=== PATIENT | female | born 1940 | race African-American/Black ===

== ENCOUNTER 2019-05-01 15:38 | Observation (INO) ==
[2019-05-01] MEDS ORDERED: ALUMINUM/MAGNES/SIMETH MAX STR 30 ML UDCUP PO STA (18:25)
[2019-05-01] MEDS ORDERED: RANITIDINE 150 MG TABLET PO STA (18:25)
[2019-05-01 19:08] LABS: Basophils % 0.5 % (0.0-0.8); Eosinophils % 0.3 % (0.00-10.9); Hematocrit 37.3 VOL% (35.7-47.0); Hemoglobin 11.9 GM/DL (12.0-16.0); Immature Granulocytes % 0.7 %; Immature Granulocytes Absolute 0.04 #; Lymphocytes # 1.4 10*3/uL (1.4-4.0); Lymphocytes % 24.3 % (21.3-54.2); Mean Corpuscular HGB Conc 31.9 GM/DL (32-36); Mean Corpuscular Volume 93.7 FL (87-102); Mean Platelet Volume 11.8 FL (9.6-12.0); Monocytes % 19.1 % (1.7-12.7); Neutrophils % 55.1 % (38.7-73.9); Platelet Count 124 T/CUMM (130-400); Red Blood Count 3.98 MC/CUMM (3.8-5.5); White Blood Count 5.7 T/CUMM (4-12)
[2019-05-01 19:30] LABS: Eosinophils 1 % (0-10); Lymphocytes 24 % (20-55); Segmented Neutrophils 62 % (50-85); Total Cells Counted 100
[2019-05-01 19:31] LABS: Anisocytosis 1+; Hypochromasia Slight; Platelet Estimate Adequate; Schistocytes Few
[2019-05-01 19:32] LABS: Bilirubin,Direct 0.33 MG/DL (0.0-0.20); Bilirubin,Indirect 0.7 MG/DL (0.0-1.0); Calcium 8.9 MG/DL (8.5-10.1); Osmolality,Calculated 278.7 MOS/KG (273-304); Total Protein 8.3 G/DL (6.4-8.3)
[2019-05-01 19:42] LABS: Apearance,Urine Slightly Hazy (Clear); Bacteria,Urine Occasional /HPF (Few); Bilirubin,Urine Negative (Negative); Blood, Urine Negative (Negative); Glucose,Urine (UA) Negative (Negative); Ketones,Urine Negative (Negative); Nitrite,Urine Negative (Negative); Protein,Urine >=500 MG/DL; RBC,Urine 3 /HPF (0-4); Squamous Epithelial Cell,Urine Few /HPF (0-10); Urine Color Yellow (Yellow); Urine Specific Gravity 1.025 (1.001-1.035); Urine Urobilinogen < 2.0 EU/DL (0.2-1.0); WBC,Urine 1 /HPF (0-6)
[2019-05-01] MEDS ORDERED: SODIUM CHLORIDE 0.9% 500 ML IV STA (19:43)
[2019-05-01] MEDS ORDERED: FUROSEMIDE 100 MG/10 ML VIAL IV STA (22:02)
[2019-05-01] MEDS ORDERED: ASPIRIN CHEW 81 MG TABLET PO STA (22:02)
[2019-05-01] MEDS ORDERED: ENOXAPARIN 30 MG/0.3 ML SYRINGE SUBCUT STA (22:02)
[2019-05-01] MEDS ORDERED: ENOXAPARIN 80 MG/0.8 ML SYRINGE SUBCUT ONE (22:05)
[2019-05-02] MEDS ORDERED: DICYCLOMINE 20 MG TABLET PO PRN (01:09)
[2019-05-02] MEDS ORDERED: MORPHINE 4 MG/1 ML VIAL IV PRN (01:09)
[2019-05-02] MEDS ORDERED: ONDANSETRON 4 MG/2 ML VIAL IV PRN (01:09)
[2019-05-02] MEDS ORDERED: diphenhydrAMINE CAP 25 MG CAPSULE PO PRN (01:09)
[2019-05-02] MEDS ORDERED: ACETAMINOPHEN 325 MG TABLET PO PRN (01:09)
[2019-05-02] MEDS ORDERED: NITROGLYCERIN SL 0.4 MG TABLET SL PRN (01:10)
[2019-05-02 04:59] LABS: Basophils % 0.3 % (0.0-0.8); Eosinophils # 0.1 10*3/uL (0.0-0.87); Eosinophils % 1.2 % (0.00-10.9); Hematocrit 34.9 VOL% (35.7-47.0); Hemoglobin 11.5 GM/DL (12.0-16.0); Immature Granulocytes % 0.9 %; Immature Granulocytes Absolute 0.05 #; Lymphocytes # 1.7 10*3/uL (1.4-4.0); Lymphocytes % 28.6 % (21.3-54.2); Mean Corpuscular Volume 90.2 FL (87-102); Monocytes % 20.4 % (1.7-12.7); Neutrophils % 48.6 % (38.7-73.9); Platelet Count 130 T/CUMM (130-400); Red Blood Count 3.87 MC/CUMM (3.8-5.5); Red Cell Distribution Width 14.1 % (9.3-17.3); White Blood Count 5.8 T/CUMM (4-12)
[2019-05-02 05:35] LABS: Eosinophils 5 % (0-10); Lymphocytes 31 % (20-55); Metamyelocytes 2 %; Myelocytes 1 %; Platelet Estimate Decreased; Segmented Neutrophils 56 % (50-85); Total Cells Counted 100
[2019-05-02 05:36] LABS: Polychromasia Few
[2019-05-02 05:39] LABS: Calcium 8.7 MG/DL (8.5-10.1); Osmolality,Calculated 280.5 MOS/KG (273-304); Risk Ratio 2.73; Thyroid Stimulating Hormone 2.07 uIU/ml (0.358-3.74)
[2019-05-02] MEDS: FERROUS SULFATE 325 MG TABLET PO SCH (09:48)
[2019-05-02] MEDS: LOSARTAN 50 MG TABLET PO SCH (09:48)
[2019-05-02] MEDS: PANTOPRAZOLE 40 MG TABLET PO SCH (09:48)
[2019-05-02] MEDS: ASPIRIN EC 81 MG TABLET PO SCH (09:48)
[2019-05-02] MEDS ORDERED: ENOXAPARIN 80 MG/0.8 ML SYRINGE SUBCUT SCH (10:00)
[2019-05-02] MEDS ORDERED: ENOXAPARIN 30 MG/0.3 ML SYRINGE SUBCUT SCH (21:00)
[2019-05-02] MEDS: traZODone 50 MG TABLET PO PRN (21:45)
[2019-05-03 06:27] LABS: Basophils % 0.5 % (0.0-0.8); Eosinophils # 0.2 10*3/uL (0.0-0.87); Eosinophils % 3.1 % (0.00-10.9); Hematocrit 30.6 VOL% (35.7-47.0); Hemoglobin 10.2 GM/DL (12.0-16.0); Immature Granulocytes % 0.5 %; Immature Granulocytes Absolute 0.03 #; Lymphocytes # 1.8 10*3/uL (1.4-4.0); Lymphocytes % 32.5 % (21.3-54.2); Mean Corpuscular HGB Conc 33.3 GM/DL (32-36); Monocytes % 24.8 % (1.7-12.7); Neutrophils % 38.6 % (38.7-73.9); Platelet Count 117 T/CUMM (130-400); White Blood Count 5.5 T/CUMM (4-12)
[2019-05-03 06:44] LABS: Osmolality,Calculated 271.2 MOS/KG (273-304)
[2019-05-03 06:50] LABS: Eosinophils 1 % (0-10); Hypochromasia 1+; Lymphocytes 42 % (20-55); Ovalocytes Slight; Platelet Estimate Decreased; Segmented Neutrophils 36 % (50-85); Total Cells Counted 100
[2019-05-03] MEDS: ASPIRIN EC 81 MG TABLET PO SCH (09:18)
[2019-05-03] MEDS: LOSARTAN 50 MG TABLET PO SCH (09:19)
[2019-05-03] MEDS: FERROUS SULFATE 325 MG TABLET PO SCH (09:19)
[2019-05-03] MEDS: PANTOPRAZOLE 40 MG TABLET PO SCH ×2 (09:19→17:29)
[2019-05-03] MEDS ORDERED: propofoL 200 MG/20 ML VIAL IV ONE (09:30)
[2019-05-03] MEDS ORDERED: LIDOCAINE 2% 5 ML VIAL ONE (09:30)
[2019-05-03] MEDS: cefTRIAXone 1,000 MG in SYRINGE 1 EACH IV SCH (11:17)
[2019-05-03] MEDS ORDERED: SODIUM CHLORIDE 0.9% 1,000 ML IV SCH (11:30)
[2019-05-03] MEDS ORDERED: PANTOPRAZOLE 40 MG TABLET PO ONE (17:12)
[2019-05-03] MEDS: traZODone 50 MG TABLET PO PRN (22:01)
[2019-05-04 05:19] LABS: Basophils % 0.7 % (0.0-0.8); Eosinophils # 0.2 10*3/uL (0.0-0.87); Eosinophils % 2.7 % (0.00-10.9); Hematocrit 31.8 VOL% (35.7-47.0); Hemoglobin 10.7 GM/DL (12.0-16.0); Immature Granulocytes % 0.7 %; Immature Granulocytes Absolute 0.04 #; Lymphocytes # 1.6 10*3/uL (1.4-4.0); Mean Corpuscular HGB Conc 33.6 GM/DL (32-36); Mean Corpuscular Volume 89.1 FL (87-102); Mean Platelet Volume 12.8 FL (9.6-12.0); Monocytes % 25.9 % (1.7-12.7); Platelet Count 116 T/CUMM (130-400); Red Blood Count 3.57 MC/CUMM (3.8-5.5); White Blood Count 5.5 T/CUMM (4-12)
[2019-05-04 05:49] LABS: Calcium 7.9 MG/DL (8.5-10.1); Osmolality,Calculated 276.8 MOS/KG (273-304)
[2019-05-04 05:56] LABS: Band Neutrophils 3 % (0-10); Eosinophils 2 % (0-10); Lymphocytes 29 % (20-55); Segmented Neutrophils 47 % (50-85); Total Cells Counted 100
[2019-05-04 05:57] LABS: Anisocytosis 1+; Burr Cells Few; Platelet Estimate Adequate; Poikilocytosis 1+
[2019-05-04 05:58] LABS: Macrocytosis Slight
[2019-05-04] MEDS: PANTOPRAZOLE 40 MG TABLET PO SCH (06:25)
[2019-05-04] MEDS: ASPIRIN EC 81 MG TABLET PO SCH (09:19)
[2019-05-04] MEDS: LOSARTAN 50 MG TABLET PO SCH (09:19)
[2019-05-04] MEDS: FERROUS SULFATE 325 MG TABLET PO SCH (09:19)
[2019-05-04] MEDS: cefTRIAXone 1,000 MG in SYRINGE 1 EACH IV SCH (11:37)
[2019-05-04 13:04] VITALS: BP 144/76
== END 2019-05-04 12:23 | disposition home or self-care (01) ==
LOC: N.EDINP 15:38 → N.ED 15:38 → N.TELEN 05-02 00:39
PROVIDERS: ADMIT Internal Medicine; ATTEND Internal Medicine

== ENCOUNTER 2020-07-09 17:34 | Inpatient (IN) ==
[2020-07-09 18:32] LABS: Basophils # 0.1 10*3/uL (0.0-0.2); Basophils % 1.5 % (0.0-0.8); Eosinophils # 0.1 10*3/uL (0.0-0.87); Eosinophils % 3.3 % (0.00-10.9); Hematocrit 33.7 VOL% (35.7-47.0); Hemoglobin 10.5 GM/DL (12.0-16.0); Immature Granulocytes % 0.5 %; Immature Granulocytes Absolute 0.02 #; Lymphocytes % 26.2 % (21.3-54.2); Mean Corpuscular HGB Conc 31.2 GM/DL (32-36); Mean Corpuscular Volume 94.7 FL (87-102); Monocytes % 30.3 % (1.7-12.7); Neutrophils % 38.2 % (38.7-73.9); Platelet Count 113 T/CUMM (130-400); Red Blood Count 3.56 MC/CUMM (3.8-5.5); Red Cell Distribution Width 17.2 % (9.3-17.3); White Blood Count 3.9 T/CUMM (4-12)
[2020-07-09 18:49] LABS: Albumin 3.4 G/DL (3.4-5.0); Bilirubin,Total 1.3 MG/DL (0.2-1.0); Calcium 8.9 MG/DL (8.5-10.1); Osmolality,Calculated 293.8 MOS/KG (273-304); Potassium 4.9 MMOL/L (3.5-5.1); Total Protein 8.7 G/DL (5.0-7.5)
[2020-07-09 18:53] LABS: Troponin I 0.148 NG/ML (0.00-0.045)
[2020-07-09 18:59] LABS: Anisocytosis Slight; Lymphocytes 24 % (20-55); Nucleated Red Blood Cells 1 (0-5); Platelet Estimate Adequate; Segmented Neutrophils 49 % (50-85); Total Cells Counted 100
[2020-07-09 19:00] LABS: Poikilocytosis Slight; Schistocytes Few
[2020-07-09] MEDS ORDERED: FUROSEMIDE 40 MG/4 ML VIAL IV STA (19:48)
[2020-07-09] MEDS ORDERED: DEXTROSE 50% 25 GM/50 ML VIAL IV PRN (21:03)
[2020-07-09] MEDS ORDERED: ONDANSETRON 4 MG/2 ML VIAL IV PRN (21:03)
[2020-07-09] MEDS ORDERED: GLUCAGON 1 MG VIAL IM PRN (21:03)
[2020-07-09] MEDS ORDERED: hydrALAZINE 20 MG/1 ML VIAL IV PRN (21:03)
[2020-07-10 05:39] LABS: Basophils % 0.9 % (0.0-0.8); Eosinophils # 0.1 10*3/uL (0.0-0.87); Eosinophils % 3.1 % (0.00-10.9); Hemoglobin 9.6 GM/DL (12.0-16.0); Immature Granulocytes % 0.2 %; Immature Granulocytes Absolute 0.01 #; Lymphocytes # 1.1 10*3/uL (1.4-4.0); Lymphocytes % 23.9 % (21.3-54.2); Mean Corpuscular Volume 95.7 FL (87-102); Monocytes % 39.2 % (1.7-12.7); Neutrophils % 32.7 % (38.7-73.9); Platelet Count 57 T/CUMM (130-400); Red Blood Count 3.24 MC/CUMM (3.8-5.5); Red Cell Distribution Width 17.3 % (9.3-17.3); White Blood Count 4.5 T/CUMM (4-12)
[2020-07-10 06:11] LABS: Eosinophils 1 % (0-10); Hypochromasia 1+; Lymphocytes 36 % (20-55); Microcytosis 1+; Platelet Estimate Decreased; Segmented Neutrophils 33 % (50-85); Total Cells Counted 100
[2020-07-10 06:12] LABS: Burr Cells Slight; Ovalocytes Slight
[2020-07-10 06:17] LABS: Albumin 3.2 G/DL (3.4-5.0); Bilirubin,Total 2.2 MG/DL (0.2-1.0); Calcium 9.2 MG/DL (8.5-10.1); Osmolality,Calculated 290.8 MOS/KG (273-304); Thyroid Stimulating Hormone 8.33 uIU/ml (0.358-3.74)
[2020-07-10] MEDS: FUROSEMIDE 40 MG/4 ML VIAL IV SCH ×2 (09:45→15:27)
[2020-07-10] MEDS: ASPIRIN EC 81 MG TABLET PO SCH (09:45)
[2020-07-10 12:29] LABS: Basophils # 0.1 10*3/uL (0.0-0.2); Basophils % 1.2 % (0.0-0.8); Eosinophils # 0.1 10*3/uL (0.0-0.87); Eosinophils % 3.4 % (0.00-10.9); Hemoglobin 9.8 GM/DL (12.0-16.0); Immature Granulocytes % 0.7 %; Immature Granulocytes Absolute 0.03 #; Lymphocytes # 1.1 10*3/uL (1.4-4.0); Lymphocytes % 26.9 % (21.3-54.2); Mean Corpuscular HGB Conc 30.6 GM/DL (32-36); Mean Corpuscular Volume 96.7 FL (87-102); Monocytes % 31.5 % (1.7-12.7); Neutrophils % 36.3 % (38.7-73.9); Platelet Count 96 T/CUMM (130-400); Red Blood Count 3.31 MC/CUMM (3.8-5.5); Red Cell Distribution Width 17.5 % (9.3-17.3); White Blood Count 4.1 T/CUMM (4-12)
[2020-07-10 12:51] LABS: Albumin 3.4 G/DL (3.4-5.0); Bilirubin,Direct 0.7 MG/DL (0.0-0.20); Bilirubin,Indirect 0.6 MG/DL (0.0-1.0); Bilirubin,Total 1.3 MG/DL (0.2-1.0); Total Protein 8.5 G/DL (5.0-7.5)
[2020-07-10 12:58] LABS: Eosinophils 1 % (0-10)
[2020-07-10 12:59] LABS: Anisocytosis 2+; Lymphocytes 25 % (20-55); Segmented Neutrophils 45 % (50-85); Total Cells Counted 100
[2020-07-10 13:00] LABS: Acanthocytes 1+; Immunoglobulin A 309 MG/DL (70-400); Immunoglobulin G 2790 MG/DL (700-1600); Immunoglobulin M 107 MG/DL (40-230); Toxic Granulation 1+
[2020-07-10 13:04] LABS: Burr Cells 1+
[2020-07-10 13:05] LABS: Macrocytosis 1+; Poikilocytosis 1+
[2020-07-10 13:06] LABS: Platelet Estimate Decreased
[2020-07-10] MEDS: ACETAMINOPHEN 325 MG TABLET PO PRN (19:28)
[2020-07-10] MEDS: ENOXAPARIN 30 MG/0.3 ML SYRINGE SUBCUT SCH (20:39)
[2020-07-11] MEDS: PANTOPRAZOLE 40 MG TABLET PO SCH (06:06)
[2020-07-11] MEDS: LEVOTHYROXINE 50 MCG TABLET PO SCH (06:06)
[2020-07-11 06:16] LABS: Eosinophils # 0.1 10*3/uL (0.0-0.87); Eosinophils % 3.2 % (0.00-10.9); Hemoglobin 9.5 GM/DL (12.0-16.0); Immature Granulocytes % 0.5 %; Immature Granulocytes Absolute 0.02 #; Lymphocytes # 1.1 10*3/uL (1.4-4.0); Lymphocytes % 27.4 % (21.3-54.2); Mean Corpuscular HGB Conc 31.7 GM/DL (32-36); Mean Corpuscular Volume 94.3 FL (87-102); Monocytes % 35.6 % (1.7-12.7); Neutrophils % 32.3 % (38.7-73.9); Red Blood Count 3.18 MC/CUMM (3.8-5.5); Red Cell Distribution Width 17.4 % (9.3-17.3); White Blood Count 4.1 T/CUMM (4-12)
[2020-07-11 06:35] LABS: Albumin 3.2 G/DL (3.4-5.0); Bilirubin,Total 1.2 MG/DL (0.2-1.0); Calcium 8.5 MG/DL (8.5-10.1); Osmolality,Calculated 291.5 MOS/KG (273-304); Potassium 4.9 MMOL/L (3.5-5.1); Total Protein 7.9 G/DL (5.0-7.5)
[2020-07-11 06:38] LABS: Platelet Count 55 T/CUMM (130-400)
[2020-07-11 06:46] LABS: Eosinophils 10 % (0-10); Lymphocytes 22 % (20-55); Platelet Estimate Decreased; Segmented Neutrophils 39 % (50-85); Total Cells Counted 100
[2020-07-11 06:47] LABS: Hypochromasia 1+; Macrocytosis Slight; Ovalocytes Slight
[2020-07-11 08:32] LABS: Immunoglobulin A (Chem) 309 MG/DL (70-400); Immunoglobulin G (Chem) 2790 MG/DL (700-1600); Immunoglobulin M (Chem) 107 MG/DL (40-230)
[2020-07-11] MEDS: ASPIRIN EC 81 MG TABLET PO SCH (08:51)
[2020-07-11] MEDS: FUROSEMIDE 40 MG/4 ML VIAL IV SCH ×2 (08:51→16:40)
[2020-07-11] MEDS: DOCUSATE SODIUM 100 MG CAPSULE PO PRN ×2 (16:40→20:32)
[2020-07-11] MEDS: ENOXAPARIN 30 MG/0.3 ML SYRINGE SUBCUT SCH (20:29)
[2020-07-12 05:23] LABS: Basophils % 1.1 % (0.0-0.8); Eosinophils # 0.1 10*3/uL (0.0-0.87); Eosinophils % 2.5 % (0.00-10.9); Hemoglobin 9.1 GM/DL (12.0-16.0); Immature Granulocytes % 0.3 %; Immature Granulocytes Absolute 0.01 #; Lymphocytes # 0.9 10*3/uL (1.4-4.0); Lymphocytes % 26.2 % (21.3-54.2); Mean Corpuscular HGB Conc 32.5 GM/DL (32-36); Mean Corpuscular Volume 91.5 FL (87-102); Monocytes % 30.6 % (1.7-12.7); Neutrophils % 39.3 % (38.7-73.9); Platelet Count 65 T/CUMM (130-400); Red Blood Count 3.06 MC/CUMM (3.8-5.5); Red Cell Distribution Width 17.3 % (9.3-17.3); White Blood Count 3.6 T/CUMM (4-12)
[2020-07-12] MEDS: PANTOPRAZOLE 40 MG TABLET PO SCH (05:45)
[2020-07-12] MEDS: LEVOTHYROXINE 50 MCG TABLET PO SCH (05:45)
[2020-07-12 05:47] LABS: Eosinophils 2 % (0-10); Hypochromasia 1+; Lymphocytes 27 % (20-55); Microcytosis 1+; Platelet Estimate Decreased; Segmented Neutrophils 44 % (50-85); Total Cells Counted 100
[2020-07-12 05:54] LABS: Calcium 8.8 MG/DL (8.5-10.1); Potassium 4.8 MMOL/L (3.5-5.1)
[2020-07-12] MEDS: FERROUS SULFATE 325 MG TABLET PO SCH (09:04)
[2020-07-12] MEDS: FUROSEMIDE 40 MG/4 ML VIAL IV SCH ×2 (09:04→16:23)
[2020-07-12] MEDS: ASPIRIN EC 81 MG TABLET PO SCH (09:04)
[2020-07-12] MEDS: metOLazone 5 MG TABLET PO SCH (09:04)
[2020-07-12] MEDS ORDERED: LACTULOSE 20 GM/30 ML UDCUP PO PRN (13:21)
[2020-07-12 14:31] LABS: Hepatitis B Surface Ag Quant < 0.10 Index; Hepatitis B Surface Ag Result Non-Reactive (NonReactive)
[2020-07-12 14:32] LABS: Hepatitis B Core IgM Quant 0.26 Index; Hepatitis C Virus Ab Quant 0.23 Index; Hepatitis C Virus Ab Result Non-Reactive (NonReactive)
[2020-07-12] MEDS: ACETAMINOPHEN 325 MG TABLET PO PRN (18:30)
[2020-07-12 19:46] LABS: Folate 17.2 NG/ML (5.38-24.0)
[2020-07-12] MEDS ORDERED: ZALEPLON 5 MG CAPSULE PO PRN (21:31)
[2020-07-13] MEDS: LEVOTHYROXINE 50 MCG TABLET PO SCH (05:32)
[2020-07-13] MEDS: PANTOPRAZOLE 40 MG TABLET PO SCH (05:32)
[2020-07-13 06:18] LABS: INR 1.4; PT Patient Result 14.3 SECS (9.8-11.9)
[2020-07-13 06:30] LABS: Basophils % 0.8 % (0.0-0.8); Eosinophils # 0.1 10*3/uL (0.0-0.87); Eosinophils % 2.7 % (0.00-10.9); Hematocrit 28.4 VOL% (35.7-47.0); Hemoglobin 9.5 GM/DL (12.0-16.0); Immature Granulocytes % 0.5 %; Immature Granulocytes Absolute 0.02 #; Lymphocytes # 0.9 10*3/uL (1.4-4.0); Lymphocytes % 23.3 % (21.3-54.2); Mean Corpuscular HGB Conc 33.5 GM/DL (32-36); Mean Corpuscular Volume 90.2 FL (87-102); Monocytes % 34.8 % (1.7-12.7); Neutrophils % 37.9 % (38.7-73.9); Red Blood Count 3.15 MC/CUMM (3.8-5.5); Red Cell Distribution Width 17.2 % (9.3-17.3); White Blood Count 3.7 T/CUMM (4-12)
[2020-07-13] MEDS ORDERED: DIAZEPAM 5 MG TABLET PO ONE (06:30)
[2020-07-13 06:32] LABS: Platelet Count 83 T/CUMM (130-400)
[2020-07-13 06:39] LABS: Osmolality,Calculated 291.8 MOS/KG (273-304); Potassium 4.2 MMOL/L (3.5-5.1)
[2020-07-13 06:45] LABS: Immunoglobulin A 282 MG/DL (70-400); Immunoglobulin G 2440 MG/DL (700-1600); Immunoglobulin M 93 MG/DL (40-230)
[2020-07-13 08:03] LABS: Band Neutrophils 1 % (0-10); Eosinophils 4 % (0-10); Lymphocytes 27 % (20-55); Segmented Neutrophils 39 % (50-85); Total Cells Counted 100
[2020-07-13 08:04] LABS: Platelet Estimate Decreased
[2020-07-13 08:05] LABS: Acanthocytes 2+; Anisocytosis 1+; Atypical Lymphocytes Few; Macrocytosis 1+; Ovalocytes 1+
[2020-07-13] MEDS: metOLazone 5 MG TABLET PO SCH (09:18)
[2020-07-13] MEDS: FERROUS SULFATE 325 MG TABLET PO SCH (09:18)
[2020-07-13] MEDS: FUROSEMIDE 40 MG/4 ML VIAL IV SCH ×2 (09:18→15:52)
[2020-07-13 09:28] LABS: Immunoglobulin A (Chem) 282 MG/DL (70-400); Immunoglobulin G (Chem) 2440 MG/DL (700-1600); Immunoglobulin M (Chem) 93 MG/DL (40-230)
[2020-07-13] MEDS ORDERED: LIDOCAINE 1%/EPI INJ 20 ML VIAL ONE (10:14)
[2020-07-13 19:43] LABS: HIT Interpretation Negative (Negative)
[2020-07-13] MEDS ORDERED: NALOXONE 0.4 MG/ML VIAL ONE (22:12)
[2020-07-14] MEDS: ACETAMINOPHEN 325 MG TABLET PO PRN (03:27)
[2020-07-14] MEDS: PANTOPRAZOLE 40 MG TABLET PO SCH (05:49)
[2020-07-14] MEDS: LEVOTHYROXINE 50 MCG TABLET PO SCH (05:50)
[2020-07-14 06:04] LABS: Basophils % 0.8 % (0.0-0.8); Eosinophils # 0.1 10*3/uL (0.0-0.87); Eosinophils % 1.7 % (0.00-10.9); Hemoglobin 8.5 GM/DL (12.0-16.0); Immature Granulocytes % 0.6 %; Immature Granulocytes Absolute 0.03 #; Lymphocytes % 18.4 % (21.3-54.2); Mean Corpuscular HGB Conc 32.7 GM/DL (32-36); Mean Corpuscular Volume 90.3 FL (87-102); Monocytes % 33.5 % (1.7-12.7); Platelet Count 42 T/CUMM (130-400); Red Blood Count 2.88 MC/CUMM (3.8-5.5); Red Cell Distribution Width 17.1 % (9.3-17.3); White Blood Count 5.3 T/CUMM (4-12)
[2020-07-14 06:28] LABS: Calcium 8.7 MG/DL (8.5-10.1); Osmolality,Calculated 291.7 MOS/KG (273-304); Potassium 4.2 MMOL/L (3.5-5.1)
[2020-07-14 06:42] LABS: Band Neutrophils 2 % (0-10); Lymphocytes 26 % (20-55); Metamyelocytes 1 %; Platelet Estimate Decreased; Segmented Neutrophils 48 % (50-85); Total Cells Counted 100
[2020-07-14 06:43] LABS: Acanthocytes Few; Anisocytosis 3+; Atypical Lymphocytes Few; Burr Cells Few; Macrocytosis 1+; Poikilocytosis 1+; Schistocytes Few
[2020-07-14 06:44] LABS: Hypochromasia Slight
[2020-07-14] MEDS: metOLazone 5 MG TABLET PO SCH (09:13)
[2020-07-14] MEDS: FUROSEMIDE 40 MG/4 ML VIAL IV SCH (09:13)
[2020-07-14] MEDS: FERROUS SULFATE 325 MG TABLET PO SCH (09:13)
[2020-07-14 11:15] VITALS: BP 108/49
[2020-07-14 12:04] LABS: Basophils % 0.6 % (0.0-0.8); Eosinophils # 0.1 10*3/uL (0.0-0.87); Eosinophils % 1.7 % (0.00-10.9); Hematocrit 28.5 VOL% (35.7-47.0); Immature Granulocytes % 0.8 %; Immature Granulocytes Absolute 0.05 #; Lymphocytes # 1.4 10*3/uL (1.4-4.0); Mean Corpuscular HGB Conc 31.6 GM/DL (32-36); Mean Corpuscular Volume 93.1 FL (87-102); Monocytes % 35.3 % (1.7-12.7); Neutrophils % 40.6 % (38.7-73.9); Platelet Count 53 T/CUMM (130-400); Red Blood Count 3.06 MC/CUMM (3.8-5.5); Red Cell Distribution Width 17.2 % (9.3-17.3); White Blood Count 6.6 T/CUMM (4-12)
[2020-07-14 12:59] LABS: Eosinophils 3 % (0-10); Lymphocytes 25 % (20-55); Macrocytosis 1+; Platelet Estimate Decreased; Segmented Neutrophils 43 % (50-85); Total Cells Counted 100
[2020-07-14 13:00] LABS: Anisocytosis 2+; Hypochromasia 1+; Ovalocytes Few; Poikilocytosis Slight; Tear Drop Cells Few
== END 2020-07-14 13:44 | disposition home or self-care (01) | DRG 291 ==
LOC: N.ED 17:34 → N.EDINP 19:49 → N.5E 21:16
PROVIDERS: ADMIT Internal Medicine; ATTEND Internal Medicine

== ENCOUNTER 2022-04-24 09:03 | Inpatient (IN) ==
[2022-04-24 10:35] LABS: Basophils % 0.2 % (0.0-0.8); Eosinophils % 0.1 % (0.00-10.9); Hematocrit 30.4 VOL% (35.7-47.0); Hemoglobin 9.5 GM/DL (12.0-16.0); Immature Granulocytes % 2.1 %; Immature Granulocytes Absolute 0.35 #; Lymphocytes % 5.7 % (21.3-54.2); Mean Corpuscular HGB Conc 31.3 GM/DL (32-36); Mean Corpuscular Volume 95.6 FL (87-102); Monocytes # 2.9 10*3/uL (0.11-0.8); Monocytes % 17.3 % (1.7-12.7); Neutrophils % 74.6 % (38.7-73.9); Red Blood Count 3.18 MC/CUMM (3.8-5.5); White Blood Count 16.9 T/CUMM (4-12)
[2022-04-24 10:36] LABS: Platelet Count 97 T/CUMM (130-400)
[2022-04-24 10:56] LABS: Bilirubin,Total 0.9 MG/DL (0.20-1.00); Calcium 9.3 MG/DL (8.5-10.1); Total Protein 8.5 G/DL (6.4-8.2)
[2022-04-24 11:08] LABS: Bacteria,Urine Occasional /HPF (Few); Hyaline Casts,Urine 17 /LPF (0-3); Mucus,Urine Occasional /LPF (Occasional); RBC,Urine <1 /HPF (0-4); Squamous Epithelial Cell,Urine Few /HPF (0-10); Urine Appearance Clear (Clear); Urine Color Yellow (Yellow); Urine pH 5.5 (4.5-8.0)
[2022-04-24 11:09] LABS: Bilirubin,Urine Negative (Negative); Blood, Urine Trace mg/dL (Negative); Glucose,Urine (UA) Negative (Negative); Ketones,Urine Negative (Negative); Nitrite,Urine Negative (Negative); Protein,Urine Negative (Negative); Urine Specific Gravity 1.015 (1.001-1.035); Urine Urobilinogen 0.2 eU/dL (<2.0)
[2022-04-24 11:14] LABS: Lymphocytes 7 % (20-55); Total Cells Counted 100
[2022-04-24 11:15] LABS: Anisocytosis Slight; Macrocytosis Slight; Microcytosis Slight; Platelet Estimate Decreased
[2022-04-24 11:16] LABS: Hypochromia Slight; Polychromasia Slight
[2022-04-24] MEDS ORDERED: SODIUM POLYSTYRENE SULFATE 15 GM/60 ML BOTTLE PO STA (12:15)
[2022-04-24] MEDS ORDERED: SODIUM BICARBONATE 50 MEQ/50 ML VIAL IV STA (12:15)
[2022-04-24] MEDS ORDERED: CALCIUM GLUCONATE RIDER 1,000 MG/50 ML PREMIX IV ONE (12:15)
[2022-04-24] MEDS ORDERED: INSULIN REGULAR 100 UNIT/ML IV STA (12:15)
[2022-04-24] MEDS ORDERED: FUROSEMIDE 40 MG/4 ML VIAL IV STA (12:15)
[2022-04-24] MEDS ORDERED: GLUCAGON 1 MG VIAL IM PRN (12:21)
[2022-04-24] MEDS ORDERED: DEXTROSE 10% 250 ML BAG IV PRN (12:21)
[2022-04-24] MEDS ORDERED: ONDANSETRON 4 MG/2 ML VIAL IV PRN (12:21)
[2022-04-24] MEDS ORDERED: MORPHINE 2 MG/1 ML SYRINGE IV PRN (12:21)
[2022-04-24] MEDS ORDERED: DEXTROSE 50% 25 GM/50 ML SYRINGE IV STA (12:22)
[2022-04-24] MEDS: HEPARIN 5,000 UNIT/1 ML VIAL SUBCUT SCH (13:42)
[2022-04-24] MEDS: SODIUM POLYSTYRENE SULFATE 15 GM/60 ML BOTTLE PO SCH (18:28)
[2022-04-25 01:09] LABS: Basophils % 0.2 % (0.0-0.8); Eosinophils # 0.1 10*3/uL (0.0-0.87); Eosinophils % 0.3 % (0.00-10.9); Hematocrit 27.8 VOL% (35.7-47.0); Hemoglobin 8.6 GM/DL (12.0-16.0); Immature Granulocytes % 1.7 %; Immature Granulocytes Absolute 0.26 #; Lymphocytes # 0.8 10*3/uL (1.4-4.0); Mean Corpuscular HGB Conc 30.9 GM/DL (32-36); Mean Corpuscular Volume 97.2 FL (87-102); Monocytes # 2.4 10*3/uL (0.11-0.8); Monocytes % 15.5 % (1.7-12.7); Neutrophils % 77.3 % (38.7-73.9); Platelet Count 40 T/CUMM (130-400); Red Blood Count 2.86 MC/CUMM (3.8-5.5); Red Cell Distribution Width 16.8 % (9.3-17.3); White Blood Count 15.4 T/CUMM (4-12)
[2022-04-25] MEDS: SODIUM POLYSTYRENE SULFATE 15 GM/60 ML BOTTLE PO SCH ×3 (01:32→14:06)
[2022-04-25] MEDS: HEPARIN 5,000 UNIT/1 ML VIAL SUBCUT SCH ×2 (01:33→14:08)
[2022-04-25 01:39] LABS: Risk Ratio 2.15; Thyroid Stimulating Hormone 3.76 uIU/ml (0.358-3.74); VLDL Cholesterol 12.8 MG/DL
[2022-04-25 02:25] LABS: Albumin 3.1 G/DL (3.4-5.0); Bilirubin,Total 0.7 MG/DL (0.20-1.00); Calcium 9.1 MG/DL (8.5-10.1); Osmolality,Calculated 311.3 MOS/KG (273-304); Potassium 5.2 MMOL/L (3.5-5.1); Total Protein 7.2 G/DL (6.4-8.2)
[2022-04-25] MEDS ORDERED: SODIUM POLYSTYRENE SULFATE 15 GM/60 ML BOTTLE PO ONE (12:50)
[2022-04-25] MEDS ORDERED: FUROSEMIDE 100 MG/10 ML VIAL IV ONE (13:13)
[2022-04-25] MEDS ORDERED: FUROSEMIDE INJ 100 MG in SODIUM CHLORIDE 0.9% 50 ML IV ONE (14:00)
[2022-04-25] MEDS: PANTOPRAZOLE 40 MG TABLET PO SCH (14:06)
[2022-04-25] MEDS ORDERED: COLCHICINE 0.6 MG CAPSULE PO ONE (15:21)
[2022-04-25] MEDS: DOXYCYCLINE MONOHYDRATE SUSP 5 MG/ML 60 ML/BOTTLE PO SCH ×2 (15:26→21:45)
[2022-04-25] MEDS: cefTRIAXone 1,000 MG in SODIUM CHLORIDE 0.9% 100 ML IV SCH (15:27)
[2022-04-25] MEDS: SODIUM BICARBONATE 650 MG TABLET PO SCH (21:45)
[2022-04-26] MEDS: HEPARIN 5,000 UNIT/1 ML VIAL SUBCUT SCH ×2 (00:07→11:43)
[2022-04-26 05:32] LABS: Albumin 3.2 G/DL (3.4-5.0); Bilirubin,Total 0.6 MG/DL (0.20-1.00); Calcium 8.7 MG/DL (8.5-10.1); Osmolality,Calculated 312.1 MOS/KG (273-304); Potassium 3.8 MMOL/L (3.5-5.1); Total Protein 6.9 G/DL (6.4-8.2)
[2022-04-26 06:48] LABS: Basophils % 0.3 % (0.0-0.8); Eosinophils # 0.1 10*3/uL (0.0-0.87); Eosinophils % 0.6 % (0.00-10.9); Hematocrit 24.5 VOL% (35.7-47.0); Hemoglobin 7.5 GM/DL (12.0-16.0); Immature Granulocytes % 2.6 %; Immature Granulocytes Absolute 0.28 #; Lymphocytes # 1.3 10*3/uL (1.4-4.0); Lymphocytes % 12.2 % (21.3-54.2); Mean Corpuscular HGB Conc 30.6 GM/DL (32-36); Mean Corpuscular Volume 94.2 FL (87-102); Mean Platelet Volume 13.9 FL (9.6-12.0); Monocytes # 2.9 10*3/uL (0.11-0.8); Neutrophils % 57.3 % (38.7-73.9); Red Cell Distribution Width 17.2 % (9.3-17.3); White Blood Count 10.8 T/CUMM (4-12)
[2022-04-26 06:50] LABS: Platelet Count 88 T/CUMM (130-400)
[2022-04-26 06:52] LABS: Eosinophils 2 % (0-10); Lymphocytes 13 % (20-55); Platelet Estimate Decreased; Total Cells Counted 100
[2022-04-26 06:53] LABS: Hypochromia 1+
[2022-04-26] MEDS: PANTOPRAZOLE 40 MG TABLET PO SCH (08:41)
[2022-04-26] MEDS: SODIUM BICARBONATE 650 MG TABLET PO SCH ×2 (08:41→22:11)
[2022-04-26] MEDS: DOXYCYCLINE MONOHYDRATE SUSP 5 MG/ML 60 ML/BOTTLE PO SCH ×2 (08:42→22:11)
[2022-04-26 12:09] LABS: Osmolality, Serum 323 mOsm/kg (275 - 295)
[2022-04-26 12:15] LABS: Osmolality, Urine 371 mOsm/kg (150 - 1150)
[2022-04-26] MEDS: cefTRIAXone 1,000 MG in SODIUM CHLORIDE 0.9% 100 ML IV SCH (14:33)
[2022-04-27 05:56] LABS: Basophils # 0.1 10*3/uL (0.0-0.2); Basophils % 0.5 % (0.0-0.8); Eosinophils # 0.1 10*3/uL (0.0-0.87); Eosinophils % 0.7 % (0.00-10.9); Hemoglobin 8.1 GM/DL (12.0-16.0); Immature Granulocytes % 0.9 %; Immature Granulocytes Absolute 0.09 #; Lymphocytes # 1.1 10*3/uL (1.4-4.0); Lymphocytes % 10.3 % (21.3-54.2); Mean Corpuscular HGB Conc 31.2 GM/DL (32-36); Mean Corpuscular Volume 94.9 FL (87-102); Mean Platelet Volume 13.1 FL (9.6-12.0); Monocytes # 3.2 10*3/uL (0.11-0.8); Neutrophils % 56.6 % (38.7-73.9); Red Blood Count 2.74 MC/CUMM (3.8-5.5); Red Cell Distribution Width 17.3 % (9.3-17.3); White Blood Count 10.2 T/CUMM (4-12)
[2022-04-27 06:02] LABS: Bilirubin,Total 0.6 MG/DL (0.20-1.00); Calcium 8.6 MG/DL (8.5-10.1); Osmolality,Calculated 313.8 MOS/KG (273-304); Platelet Count 87 T/CUMM (130-400); Potassium 3.6 MMOL/L (3.5-5.1); Total Protein 6.7 G/DL (6.4-8.2)
[2022-04-27 06:09] LABS: Calcium 8.5 MG/DL (8.5-10.1); Osmolality,Calculated 311.1 MOS/KG (273-304); Potassium 3.6 MMOL/L (3.5-5.1)
[2022-04-27 06:42] LABS: Band Neutrophils 1 % (0-10); Eosinophils 2 % (0-10); Lymphocytes 10 % (20-55); Platelet Estimate Decreased; Total Cells Counted 100
[2022-04-27 06:43] LABS: Anisocytosis 1+; Burr Cells Few; Poikilocytosis Slight; Tear Drop Cells Few
[2022-04-27 06:44] LABS: Stomatocytes Few; Target Cells Few
[2022-04-27] MEDS ORDERED: POLYETHYLENE GLYCOL POWDER 17 GM PACK PO PRN (10:12)
[2022-04-27] MEDS: SODIUM BICARBONATE 650 MG TABLET PO SCH ×2 (10:55→20:33)
[2022-04-27] MEDS: DOXYCYCLINE MONOHYDRATE SUSP 5 MG/ML 60 ML/BOTTLE PO SCH ×2 (10:56→20:33)
[2022-04-27] MEDS: PANTOPRAZOLE 40 MG TABLET PO SCH (10:56)
[2022-04-27] MEDS: cefTRIAXone 1,000 MG in SODIUM CHLORIDE 0.9% 100 ML IV SCH (15:03)
[2022-04-27] MEDS: HEPARIN 5,000 UNIT/1 ML VIAL SUBCUT SCH ×2 (15:04→19:48)
[2022-04-28] MEDS: HEPARIN 5,000 UNIT/1 ML VIAL SUBCUT SCH ×2 (01:00→13:33)
[2022-04-28 05:46] LABS: Basophils % 0.4 % (0.0-0.8); Eosinophils # 0.1 10*3/uL (0.0-0.87); Eosinophils % 0.7 % (0.00-10.9); Hematocrit 24.5 VOL% (35.7-47.0); Hemoglobin 7.5 GM/DL (12.0-16.0); Immature Granulocytes % 0.7 %; Immature Granulocytes Absolute 0.07 #; Lymphocytes # 1.2 10*3/uL (1.4-4.0); Lymphocytes % 10.9 % (21.3-54.2); Mean Corpuscular HGB Conc 30.6 GM/DL (32-36); Monocytes # 3.2 10*3/uL (0.11-0.8); Monocytes % 30.2 % (1.7-12.7); Neutrophils % 57.1 % (38.7-73.9); Red Blood Count 2.58 MC/CUMM (3.8-5.5); Red Cell Distribution Width 17.4 % (9.3-17.3); White Blood Count 10.6 T/CUMM (4-12)
[2022-04-28 05:50] LABS: Platelet Count 94 T/CUMM (130-400)
[2022-04-28 06:02] LABS: Calcium 8.3 MG/DL (8.5-10.1); Osmolality,Calculated 310.1 MOS/KG (273-304)
[2022-04-28 06:06] LABS: Albumin 2.8 G/DL (3.4-5.0); Bilirubin,Total 0.6 MG/DL (0.20-1.00); Calcium 8.3 MG/DL (8.5-10.1); Potassium 3.9 MMOL/L (3.5-5.1); Total Protein 6.6 G/DL (6.4-8.2)
[2022-04-28 06:18] LABS: Eosinophils 4 % (0-10); Lymphocytes 11 % (20-55); Platelet Estimate Decreased; Total Cells Counted 100
[2022-04-28 06:19] LABS: Hypochromia Slight; Microcytosis Slight; Ovalocytes Slight
[2022-04-28] MEDS: SODIUM BICARBONATE 650 MG TABLET PO SCH ×2 (08:06→21:02)
[2022-04-28] MEDS: PANTOPRAZOLE 40 MG TABLET PO SCH (08:06)
[2022-04-28] MEDS: DOXYCYCLINE MONOHYDRATE SUSP 5 MG/ML 60 ML/BOTTLE PO SCH ×2 (08:06→21:37)
[2022-04-28] MEDS ORDERED: SODIUM CHLORIDE 0.9% 1,000 ML IV PRN (09:39)
[2022-04-28] MEDS: cefTRIAXone 1,000 MG in SODIUM CHLORIDE 0.9% 100 ML IV SCH (15:23)
[2022-04-29] MEDS: HEPARIN 5,000 UNIT/1 ML VIAL SUBCUT SCH ×2 (00:31→12:23)
[2022-04-29 05:08] LABS: Basophils % 0.3 % (0.0-0.8); Eosinophils # 0.1 10*3/uL (0.0-0.87); Eosinophils % 0.4 % (0.00-10.9); Hematocrit 29.1 VOL% (35.7-47.0); Hemoglobin 9.5 GM/DL (12.0-16.0); Immature Granulocytes Absolute 0.12 #; Lymphocytes % 8.9 % (21.3-54.2); Mean Corpuscular HGB Conc 32.6 GM/DL (32-36); Mean Corpuscular Volume 91.8 FL (87-102); Monocytes # 3.2 10*3/uL (0.11-0.8); Monocytes % 27.5 % (1.7-12.7); Neutrophils % 61.9 % (38.7-73.9); Platelet Count 93 T/CUMM (130-400); Red Blood Count 3.17 MC/CUMM (3.8-5.5); Red Cell Distribution Width 17.7 % (9.3-17.3); White Blood Count 11.6 T/CUMM (4-12)
[2022-04-29 05:29] LABS: Albumin 2.9 G/DL (3.4-5.0); Bilirubin,Total 0.8 MG/DL (0.20-1.00); Calcium 8.4 MG/DL (8.5-10.1); Osmolality,Calculated 303.1 MOS/KG (273-304); Potassium 3.8 MMOL/L (3.5-5.1); Total Protein 6.9 G/DL (6.4-8.2)
[2022-04-29 05:38] LABS: Hypochromia Slight; Lymphocytes 5 % (20-55); Microcytosis Slight; Platelet Estimate Decreased; Total Cells Counted 100
[2022-04-29] MEDS ORDERED: METOPROLOL SUCCINATE XL 25 MG TABLET PO SCH (09:00)
[2022-04-29] MEDS: DOXYCYCLINE MONOHYDRATE SUSP 5 MG/ML 60 ML/BOTTLE PO SCH (11:09)
[2022-04-29] MEDS: SODIUM BICARBONATE 650 MG TABLET PO SCH (11:10)
[2022-04-29] MEDS: PANTOPRAZOLE 40 MG TABLET PO SCH (11:11)
[2022-04-29 12:01] VITALS: BP 94/61
== END 2022-04-29 14:45 | disposition home or self-care (01) | DRG 682 ==
LOC: N.ED 09:03 → N.EDINP 12:21 → SUATTDRO 12:21 → N.TELEN 14:36
PROVIDERS: ADMIT Family Medicine; ATTEND Internal Medicine

== ENCOUNTER 2022-05-07 13:06 | Inpatient (IN) ==
[2022-05-07 20:48] LABS: Basophils # 0.1 10*3/uL (0.0-0.2); Basophils % 0.8 % (0.0-0.8); Eosinophils # 0.1 10*3/uL (0.0-0.87); Eosinophils % 1.4 % (0.00-10.9); Hematocrit 31.4 VOL% (35.7-47.0); Hemoglobin 9.6 GM/DL (12.0-16.0); Immature Granulocytes % 0.6 %; Immature Granulocytes Absolute 0.04 #; Lymphocytes # 1.2 10*3/uL (1.4-4.0); Mean Corpuscular HGB Conc 30.6 GM/DL (32-36); Mean Corpuscular Volume 96.3 FL (87-102); Monocytes # 1.9 10*3/uL (0.11-0.8); Monocytes % 27.3 % (1.7-12.7); Neutrophils % 52.9 % (38.7-73.9); Platelet Count 59 T/CUMM (130-400); Red Blood Count 3.26 MC/CUMM (3.8-5.5); Red Cell Distribution Width 17.2 % (9.3-17.3); White Blood Count 7.1 T/CUMM (4-12)
[2022-05-07 21:17] LABS: Albumin 3.5 G/DL (3.4-5.0); Bilirubin,Total 0.7 MG/DL (0.20-1.00); Osmolality,Calculated 300.4 MOS/KG (273-304); Potassium 5.4 MMOL/L (3.5-5.1); Total Protein 7.9 G/DL (6.4-8.2)
[2022-05-07 21:28] LABS: Eosinophils 1 % (0-10); Lymphocytes 19 % (20-55); Platelet Estimate Decreased; Total Cells Counted 100
[2022-05-07] MEDS ORDERED: ONDANSETRON 4 MG/2 ML VIAL IV PRN (22:08)
[2022-05-07] MEDS ORDERED: hydrALAZINE 20 MG/1 ML VIAL IV PRN (22:08)
[2022-05-07] MEDS ORDERED: ACETAMINOPHEN 325 MG TABLET PO PRN (22:08)
[2022-05-07] MEDS ORDERED: diphenhydrAMINE CAP 25 MG CAPSULE PO PRN (22:08)
[2022-05-07] MEDS ORDERED: NICOTINE 21 MG/24 HR PATCH TRANSDERM PRN (22:08)
[2022-05-07] MEDS ORDERED: ZALEPLON 5 MG CAPSULE PO PRN (22:08)
[2022-05-07] MEDS ORDERED: MORPHINE 2 MG/1 ML SYRINGE IV PRN (22:08)
[2022-05-07] MEDS ORDERED: guaiFENesin/DM ER 600-30 MG TABLET PO PRN (22:08)
[2022-05-07] MEDS ORDERED: FUROSEMIDE 40 MG/4 ML VIAL IV STA (22:19)
[2022-05-08] MEDS ORDERED: HEPARIN DRIP 25,000 UNITS/500 ML PREMIX IV SCH (02:00)
[2022-05-08 02:49] LABS: Basophils # 0.1 10*3/uL (0.0-0.2); Basophils % 1.1 % (0.0-0.8); Eosinophils # 0.1 10*3/uL (0.0-0.87); Eosinophils % 1.1 % (0.00-10.9); Hematocrit 30.2 VOL% (35.7-47.0); Hemoglobin 9.4 GM/DL (12.0-16.0); Immature Granulocytes % 0.7 %; Immature Granulocytes Absolute 0.05 #; Lymphocytes % 13.7 % (21.3-54.2); Mean Corpuscular HGB Conc 31.1 GM/DL (32-36); Mean Corpuscular Volume 94.4 FL (87-102); Monocytes # 2.4 10*3/uL (0.11-0.8); Monocytes % 33.1 % (1.7-12.7); Neutrophils % 50.3 % (38.7-73.9); Platelet Count 55 T/CUMM (130-400); Red Cell Distribution Width 17.3 % (9.3-17.3); White Blood Count 7.4 T/CUMM (4-12)
[2022-05-08 02:54] LABS: Calcium 9.1 MG/DL (8.5-10.1); Osmolality,Calculated 299.4 MOS/KG (273-304); Potassium 5.5 MMOL/L (3.5-5.1); Thyroid Stimulating Hormone 6.42 uIU/ml (0.358-3.74)
[2022-05-08 03:39] LABS: Eosinophils 4 % (0-10); Hypochromia Slight; Lymphocytes 13 % (20-55); Ovalocytes Slight; Platelet Estimate Decreased; Total Cells Counted 100
[2022-05-08] MEDS: INSULIN LISPRO 100 UNIT/ML SUBCUT SCH ×4 (08:16→20:56)
[2022-05-08] MEDS: metOLazone 5 MG TABLET PO SCH (09:36)
[2022-05-08] MEDS: PANTOPRAZOLE 40 MG TABLET PO SCH (09:36)
[2022-05-08] MEDS: METOPROLOL SUCCINATE XL 25 MG TABLET PO SCH (11:18)
[2022-05-08] MEDS: FUROSEMIDE 80 MG TABLET PO SCH (18:55)
[2022-05-09] MEDS: LEVOTHYROXINE 75 MCG TABLET PO SCH (05:47)
[2022-05-09 06:13] LABS: Basophils # 0.1 10*3/uL (0.0-0.2); Basophils % 1.1 % (0.0-0.8); Eosinophils # 0.1 10*3/uL (0.0-0.87); Eosinophils % 1.3 % (0.00-10.9); Hematocrit 28.2 VOL% (35.7-47.0); Hemoglobin 8.8 GM/DL (12.0-16.0); Immature Granulocytes % 1.1 %; Immature Granulocytes Absolute 0.06 #; Lymphocytes # 1.2 10*3/uL (1.4-4.0); Lymphocytes % 22.5 % (21.3-54.2); Mean Corpuscular HGB Conc 31.2 GM/DL (32-36); Monocytes # 1.6 10*3/uL (0.11-0.8); Monocytes % 28.6 % (1.7-12.7); Neutrophils % 45.4 % (38.7-73.9); Platelet Count 53 T/CUMM (130-400); Red Cell Distribution Width 17.2 % (9.3-17.3); White Blood Count 5.5 T/CUMM (4-12)
[2022-05-09 06:41] LABS: Eosinophils 4 % (0-10); Hypochromia Slight; Lymphocytes 16 % (20-55); Platelet Estimate Decreased; Total Cells Counted 100
[2022-05-09 06:44] LABS: Albumin 3.3 G/DL (3.4-5.0); Calcium 8.5 MG/DL (8.5-10.1); Osmolality,Calculated 300.4 MOS/KG (273-304); Phosphorous 4.5 MG/DL (2.5-4.9); Potassium 5.3 MMOL/L (3.5-5.1)
[2022-05-09] MEDS: INSULIN LISPRO 100 UNIT/ML SUBCUT SCH ×4 (08:14→20:57)
[2022-05-09] MEDS: PANTOPRAZOLE 40 MG TABLET PO SCH (08:23)
[2022-05-09] MEDS: FUROSEMIDE 80 MG TABLET PO SCH ×2 (08:23→15:02)
[2022-05-09] MEDS: FERROUS SULFATE 325 MG TABLET PO SCH (08:24)
[2022-05-09] MEDS: metOLazone 5 MG TABLET PO SCH (08:24)
[2022-05-09] MEDS: METOPROLOL SUCCINATE XL 25 MG TABLET PO SCH (08:24)
[2022-05-09] MEDS ORDERED: ALBUTEROL/IPRATROPIUM 3 ML NEB RESP TX PRN (14:35)
[2022-05-09] MEDS ORDERED: DAPAGLIFLOZIN 10 MG TABLET PO ONE (14:40)
[2022-05-09] MEDS ORDERED: MAGNESIUM HYDROXIDE SUSP 30 ML UDCUP PO PRN (20:29)
[2022-05-10] MEDS: LEVOTHYROXINE 75 MCG TABLET PO SCH (06:15)
[2022-05-10 07:12] LABS: Basophils # 0.1 10*3/uL (0.0-0.2); Basophils % 0.7 % (0.0-0.8); Eosinophils # 0.1 10*3/uL (0.0-0.87); Eosinophils % 1.1 % (0.00-10.9); Hemoglobin 8.9 GM/DL (12.0-16.0); Immature Granulocytes % 0.8 %; Immature Granulocytes Absolute 0.06 #; Lymphocytes # 1.2 10*3/uL (1.4-4.0); Lymphocytes % 16.1 % (21.3-54.2); Mean Corpuscular HGB Conc 29.7 GM/DL (32-36); Monocytes # 2.5 10*3/uL (0.11-0.8); Monocytes % 32.9 % (1.7-12.7); Neutrophils % 48.4 % (38.7-73.9); Platelet Count 53 T/CUMM (130-400); Red Cell Distribution Width 17.2 % (9.3-17.3); White Blood Count 7.5 T/CUMM (4-12)
[2022-05-10 07:31] LABS: Calcium 8.5 MG/DL (8.5-10.1); Osmolality,Calculated 300.4 MOS/KG (273-304); Phosphorous 4.9 MG/DL (2.5-4.9)
[2022-05-10 07:32] LABS: Calcium 8.6 MG/DL (8.5-10.1); Osmolality,Calculated 303.3 MOS/KG (273-304)
[2022-05-10 07:43] LABS: Eosinophils 3 % (0-10); Lymphocytes 12 % (20-55); Total Cells Counted 100
[2022-05-10 07:44] LABS: Platelet Estimate Decreased
[2022-05-10] MEDS: INSULIN LISPRO 100 UNIT/ML SUBCUT SCH ×4 (07:57→20:55)
[2022-05-10] MEDS: PANTOPRAZOLE 40 MG TABLET PO SCH (08:56)
[2022-05-10] MEDS: FUROSEMIDE 80 MG TABLET PO SCH ×2 (08:56→16:19)
[2022-05-10] MEDS: FERROUS SULFATE 325 MG TABLET PO SCH (08:57)
[2022-05-10] MEDS: metOLazone 5 MG TABLET PO SCH (08:57)
[2022-05-10] MEDS ORDERED: DAPAGLIFLOZIN 10 MG TABLET PO SCH (09:00)
[2022-05-11 04:47] LABS: Uric Acid 13.2 MG/DL (2.6-6.0)
[2022-05-11 04:51] LABS: Parathyroid Hormone Intact 377.5 PG/ML (18.4-80.1)
[2022-05-11 04:58] LABS: Albumin 3.2 G/DL (3.4-5.0); Calcium 9.1 MG/DL (8.5-10.1); Osmolality,Calculated 300.5 MOS/KG (273-304); Phosphorous 3.8 MG/DL (2.5-4.9); Potassium 4.8 MMOL/L (3.5-5.1)
[2022-05-11 05:09] LABS: Bacteria,Urine Occasional /HPF (Few); Hyaline Casts,Urine 4 /LPF (0-3); RBC,Urine 1 /HPF (0-4); Squamous Epithelial Cell,Urine Occasional /HPF (0-10)
[2022-05-11 05:10] LABS: Urine Appearance Clear (Clear); Urine Color Yellow (Yellow); Urine Specific Gravity 1.015 (1.001-1.035); Urine pH 6.5 (4.5-8.0)
[2022-05-11 05:10] LABS: % Iron Saturation 18.8 % (18-50); Ferritin 56.3 ng/mL (8-252)
[2022-05-11 05:11] LABS: Bilirubin,Urine Negative (Negative); Blood, Urine Trace mg/dL (Negative); Glucose,Urine (UA) Negative (Negative); Ketones,Urine Negative (Negative); Nitrite,Urine Negative (Negative); Protein,Urine Negative (Negative); Urine Urobilinogen 0.2 eU/dL (<2.0)
[2022-05-11] MEDS: LEVOTHYROXINE 75 MCG TABLET PO SCH (05:46)
[2022-05-11] MEDS: INSULIN LISPRO 100 UNIT/ML SUBCUT SCH ×4 (07:18→22:17)
[2022-05-11] MEDS: FERROUS SULFATE 325 MG TABLET PO SCH (09:26)
[2022-05-11] MEDS: FUROSEMIDE 80 MG TABLET PO SCH ×2 (09:27→17:16)
[2022-05-11] MEDS: metOLazone 5 MG TABLET PO SCH (09:27)
[2022-05-11] MEDS: PANTOPRAZOLE 40 MG TABLET PO SCH (09:28)
[2022-05-11] MEDS ORDERED: allopurinoL 300 MG TABLET PO SCH (22:30)
[2022-05-12 06:11] LABS: Basophils # 0.1 10*3/uL (0.0-0.2); Basophils % 0.7 % (0.0-0.8); Eosinophils # 0.1 10*3/uL (0.0-0.87); Eosinophils % 1.5 % (0.00-10.9); Hematocrit 26.5 VOL% (35.7-47.0); Hemoglobin 8.4 GM/DL (12.0-16.0); Immature Granulocytes % 1.2 %; Immature Granulocytes Absolute 0.09 #; Lymphocytes # 0.7 10*3/uL (1.4-4.0); Lymphocytes % 9.3 % (21.3-54.2); Mean Corpuscular HGB Conc 31.7 GM/DL (32-36); Monocytes # 3.3 10*3/uL (0.11-0.8); Monocytes % 43.8 % (1.7-12.7); Neutrophils % 43.5 % (38.7-73.9); Platelet Count 54 T/CUMM (130-400); Red Blood Count 2.88 MC/CUMM (3.8-5.5); Red Cell Distribution Width 17.5 % (9.3-17.3); White Blood Count 7.5 T/CUMM (4-12)
[2022-05-12 06:33] LABS: Albumin 2.9 G/DL (3.4-5.0); Calcium 8.4 MG/DL (8.5-10.1); Osmolality,Calculated 302.3 MOS/KG (273-304); Phosphorous 3.5 MG/DL (2.5-4.9); Potassium 4.4 MMOL/L (3.5-5.1)
[2022-05-12] MEDS: LEVOTHYROXINE 75 MCG TABLET PO SCH (06:38)
[2022-05-12 06:43] LABS: Eosinophils 1 % (0-10); Hypochromia Slight; Lymphocytes 9 % (20-55); Platelet Estimate Decreased; Total Cells Counted 100
[2022-05-12] MEDS: FUROSEMIDE 80 MG TABLET PO SCH (07:29)
[2022-05-12] MEDS: INSULIN LISPRO 100 UNIT/ML SUBCUT SCH ×2 (07:32→12:31)
[2022-05-12] MEDS: FERROUS SULFATE 325 MG TABLET PO SCH (08:58)
[2022-05-12] MEDS: PANTOPRAZOLE 40 MG TABLET PO SCH (08:58)
[2022-05-12] MEDS: metOLazone 5 MG TABLET PO SCH (08:58)
[2022-05-12 12:14] VITALS: BP 111/63
== END 2022-05-12 15:36 | disposition home health service (06) | DRG 291 ==
LOC: N.ED 13:06 → SUATTDRO 22:08 → N.EDINP 22:08 → N.TELES 05-08 01:36
PROVIDERS: ADMIT Internal Medicine; ATTEND Internal Medicine

== ENCOUNTER 2022-06-10 08:49 | Inpatient (IN) ==
[2022-06-10] MEDS ORDERED: ATROPINE 1 MG/10 ML SYRINGE ONE ×2 (08:58→09:02)
[2022-06-10] MEDS ORDERED: EPINEPHrine 1 MG/ML VIAL ONE (09:02)
[2022-06-10] MEDS ORDERED: SODIUM CHLORIDE 0.9% 1,000 ML IV ONE ×2 (09:02→14:17)
[2022-06-10] MEDS ORDERED: EPINEPHrine 1 MG/10 ML SYRINGE IV STA (09:03)
[2022-06-10] MEDS ORDERED: ATROPINE 1 MG/10 ML SYRINGE IV STA (09:03)
[2022-06-10] MEDS ORDERED: ONDANSETRON 4 MG/2 ML VIAL ONE (09:06)
[2022-06-10 09:29] LABS: Basophils % 0.6 % (0.0-0.8); Eosinophils % 0.5 % (0.00-10.9); Hematocrit 28.1 VOL% (35.7-47.0); Hemoglobin 8.5 GM/DL (12.0-16.0); Immature Granulocytes % 1.1 %; Immature Granulocytes Absolute 0.07 #; Lymphocytes # 1.2 10*3/uL (1.4-4.0); Lymphocytes % 18.8 % (21.3-54.2); Mean Corpuscular HGB Conc 30.2 GM/DL (32-36); Mean Corpuscular Volume 99.3 FL (87-102); Monocytes # 1.2 10*3/uL (0.11-0.8); Monocytes % 18.6 % (1.7-12.7); Neutrophils % 60.4 % (38.7-73.9); Platelet Count 72 T/CUMM (130-400); Red Blood Count 2.83 MC/CUMM (3.8-5.5); Red Cell Distribution Width 18.9 % (9.3-17.3); White Blood Count 6.55 T/CUMM (4-12)
[2022-06-10] MEDS ORDERED: ONDANSETRON 4 MG/2 ML VIAL IV STA (09:30)
[2022-06-10 09:35] LABS: Arterial Base Excess iSTAT 1 MMOL/L (-2.5-2.5); Arterial Bicarbonate iSTAT 26.9 MMOL/L (20-26); Arterial O2 Saturation iSTAT 99 % (95-100); Arterial PCO2 iSTAT 51 MM HG (35-48); Arterial PO2 iSTAT 158 MM HG (80-95); Arterial Total CO2 iSTAT 28 MMO/L (23-27); Arterial pH iSTAT 7.331 (7.35-7.45)
[2022-06-10 09:41] LABS: Albumin 3.5 G/DL (3.4-5.0); Bilirubin,Total 0.8 MG/DL (0.20-1.00); Calcium 8.9 MG/DL (8.5-10.1); Osmolality,Calculated 316.4 MOS/KG (273-304); Potassium 5.7 MMOL/L (3.5-5.1); Total Protein 8.4 G/DL (6.4-8.2)
[2022-06-10] MEDS ORDERED: SODIUM CHLORIDE 0.9% 1,000 ML IV STA (09:51)
[2022-06-10 10:15] LABS: Anisocytosis 1+; Band Neutrophils 1 % (0-10); Hypochromia Slight; Lymphocytes 16 % (20-55); Ovalocytes Few; Total Cells Counted 100
[2022-06-10 10:44] LABS: Amorphous Crystals,Urine Few /HPF (Few); Bacteria,Urine Moderate /HPF (Few); Hyaline Casts,Urine 55 /LPF (0-3); Mucus,Urine Occasional /LPF (Occasional); Squamous Epithelial Cell,Urine Occasional /HPF (0-10)
[2022-06-10 10:46] LABS: Bilirubin,Urine Small mg/dL (Negative); Blood, Urine Trace mg/dL (Negative); Glucose,Urine (UA) Negative (Negative); Ketones,Urine Trace mg/dL (Negative); Nitrite,Urine Negative (Negative); Protein,Urine 100 mg/dL (Negative); Urine Appearance Cloudy (Clear); Urine Color Yellow (Yellow); Urine Specific Gravity > 1.030 (1.001-1.035)
[2022-06-10 10:47] LABS: Urine Urobilinogen 0.2 eU/dL (<2.0)
[2022-06-10 10:59] LABS: Barbiturates Screen,Urine Negative (Negative); Benzodiazepines Screen,Urine Negative (Negative); Cannabinoid Screen,Urine Negative (Negative); Opiate Screen,Urine Positive (Negative); Phencyclidine Screen,Urine Negative (Negative)
[2022-06-10] MEDS ORDERED: ACETAMINOPHEN 325 MG TABLET PO PRN (11:07)
[2022-06-10] MEDS ORDERED: ONDANSETRON 4 MG/2 ML VIAL IV PRN (11:07)
[2022-06-10] MEDS ORDERED: CALCIUM GLUCONATE RIDER 1,000 MG/50 ML PREMIX IV ONE ×2 (11:43→14:16)
[2022-06-10] MEDS ORDERED: SODIUM POLYSTYRENE SULFATE 15 GM/60 ML BOTTLE PO STA (11:43)
[2022-06-10] MEDS ORDERED: SODIUM BICARBONATE 50 MEQ/50 ML VIAL IV STA (11:43)
[2022-06-10] MEDS ORDERED: DEXTROSE 10% 250 ML BAG IV STA (11:45)
[2022-06-10] MEDS ORDERED: ENOXAPARIN 30 MG/0.3 ML SYRINGE SUBCUT SCH (12:00)
[2022-06-10] MEDS ORDERED: fentaNYL 100 MCG/2 ML VIAL ONE (12:02)
[2022-06-10] MEDS ORDERED: KETAMINE 500 MG/10 ML VIAL ONE ×2 (12:02→16:29)
[2022-06-10] MEDS ORDERED: MIDAZOLAM 2 MG/2 ML VIAL ONE (12:02)
[2022-06-10] MEDS ORDERED: SODIUM CHLORIDE 0.9% 250 ML IV ONE ×2 (12:04→13:00)
[2022-06-10] MEDS ORDERED: propofoL 200 MG/20 ML VIAL IV ONE ×2 (12:04→16:29)
[2022-06-10] MEDS ORDERED: CLINDAMYCIN INJ 900 MG/50 ML PREMIX IV ONE (12:04)
[2022-06-10] MEDS ORDERED: LIDOCAINE 2% 5 ML VIAL ONE (12:04)
[2022-06-10] MEDS ORDERED: LIDOCAINE 1%/EPI INJ 20 ML VIAL ONE (12:05)
[2022-06-10] MEDS ORDERED: HEPARIN 5,000 UNIT/1 ML VIAL ONE (12:05)
[2022-06-10] MEDS ORDERED: TISSUE ADHESIVE 1 EACH APPLICATOR TOP ONE (12:05)
[2022-06-10] MEDS ORDERED: BUPIVACAINE MPF 0.25% 10 ML VIAL ONE (12:05)
[2022-06-10] MEDS: DEXTROSE 5% NACL 0.45% 1,000 ML IV SCH ×2 (12:29→23:28)
[2022-06-10] MEDS ORDERED: DEXTROSE 50% 25 GM/50 ML SYRINGE IV ONE (12:37)
[2022-06-10] MEDS ORDERED: ePHEDrine 50 MG/ML VIAL ONE ×2 (12:44→16:29)
[2022-06-10] MEDS ORDERED: ceFAZolin 1,000 MG VIAL ONE (13:00)
[2022-06-10] MEDS ORDERED: PHENYLEPHRINE 1 MG/10 ML SYRINGE IV ONE ×2 (13:00→16:29)
[2022-06-10] MEDS: FAMOTIDINE 20 MG/2 ML VIAL IV SCH (14:22)
[2022-06-10] MEDS: PHENYLEPHRINE DRIP 40 MG/250 ML PREMIX IV PRN ×2 (14:50→20:58)
[2022-06-10 15:03] LABS: Hepatitis B Core IgM Quant 0.23 Index; Hepatitis B Surface Ag Quant < 0.10 Index; Hepatitis B Surface Ag Result Non-Reactive (NonReactive); Hepatitis C Virus Ab Quant 0.05 Index; Hepatitis C Virus Ab Result Non-Reactive (NonReactive)
[2022-06-10] MEDS ORDERED: GLYCOPYRROLATE 0.4 MG/2 ML VIAL ONE (16:29)
[2022-06-10] MEDS: DOPamine 800 MG/250 ML PREMIX IV PRN (18:00)
[2022-06-10] MEDS ORDERED: HEPARIN 10,000 UNIT/10 ML VIAL IV SCH (21:00)
[2022-06-10 23:09] LABS: Hematocrit 24.8 VOL% (35.7-47.0); Hemoglobin 7.6 GM/DL (12.0-16.0)
[2022-06-11] MEDS: FAMOTIDINE 20 MG/2 ML VIAL IV SCH ×2 (00:27→13:01)
[2022-06-11] MEDS: PHENYLEPHRINE DRIP 40 MG/250 ML PREMIX IV PRN ×7 (02:23→20:57)
[2022-06-11] MEDS ORDERED: LIDOCAINE 1%/EPI INJ 20 ML VIAL INFILTRAT STA (02:30)
[2022-06-11 04:29] LABS: Basophils % 0.3 % (0.0-0.8); Eosinophils % 0.1 % (0.00-10.9); Hematocrit 22.7 VOL% (35.7-47.0); Immature Granulocytes % 1.5 %; Immature Granulocytes Absolute 0.17 #; Lymphocytes # 0.9 10*3/uL (1.4-4.0); Lymphocytes % 8.1 % (21.3-54.2); Mean Corpuscular HGB Conc 30.8 GM/DL (32-36); Mean Corpuscular Volume 98.7 FL (87-102); Mean Platelet Volume 12.9 FL (9.6-12.0); Monocytes % 25.5 % (1.7-12.7); Neutrophils % 64.5 % (38.7-73.9); Platelet Count 65 T/CUMM (130-400); Red Cell Distribution Width 18.7 % (9.3-17.3)
[2022-06-11 04:49] LABS: Hypochromia Slight; Lymphocytes 3 % (20-55); Macrocytosis Slight; Platelet Estimate Decreased; Total Cells Counted 100
[2022-06-11 04:50] LABS: Osmolality,Calculated 302.7 MOS/KG (273-304); Potassium 4.6 MMOL/L (3.5-5.1)
[2022-06-11] MEDS: LEVOTHYROXINE 75 MCG TABLET PO SCH (06:53)
[2022-06-11] MEDS: DEXTROSE 5% NACL 0.45% 1,000 ML IV SCH ×2 (07:25→15:30)
[2022-06-11] MEDS: FERROUS SULFATE 325 MG TABLET PO SCH (13:01)
[2022-06-12] MEDS: FAMOTIDINE 20 MG/2 ML VIAL IV SCH ×2 (00:36→12:26)
[2022-06-12] MEDS: DEXTROSE 5% NACL 0.45% 1,000 ML IV SCH ×2 (00:36→08:57)
[2022-06-12] MEDS: PHENYLEPHRINE DRIP 40 MG/250 ML PREMIX IV PRN ×6 (01:31→22:29)
[2022-06-12 03:56] LABS: Basophils % 0.3 % (0.0-0.8); Eosinophils # 0.1 10*3/uL (0.0-0.87); Eosinophils % 0.5 % (0.00-10.9); Hematocrit 24.6 VOL% (35.7-47.0); Hemoglobin 7.7 GM/DL (12.0-16.0); Immature Granulocytes % 1.3 %; Immature Granulocytes Absolute 0.14 #; Lymphocytes # 1.2 10*3/uL (1.4-4.0); Lymphocytes % 11.2 % (21.3-54.2); Mean Corpuscular HGB Conc 31.3 GM/DL (32-36); Mean Corpuscular Volume 97.2 FL (87-102); Monocytes # 2.9 10*3/uL (0.11-0.8); Monocytes % 27.1 % (1.7-12.7); Neutrophils % 59.6 % (38.7-73.9); Platelet Count 42 T/CUMM (130-400); Red Blood Count 2.53 MC/CUMM (3.8-5.5); Red Cell Distribution Width 18.3 % (9.3-17.3); White Blood Count 10.83 T/CUMM (4-12)
[2022-06-12 04:09] LABS: Calcium 7.2 MG/DL (8.5-10.1); Osmolality,Calculated 289.7 MOS/KG (273-304); Potassium 4.2 MMOL/L (3.5-5.1)
[2022-06-12 04:38] LABS: Eosinophils 1 % (0-10); Hypochromia Slight; Lymphocytes 5 % (20-55); Microcytosis Slight; Platelet Estimate Decreased; Total Cells Counted 100
[2022-06-12] MEDS: LEVOTHYROXINE 75 MCG TABLET PO SCH (05:58)
[2022-06-12] MEDS: FERROUS SULFATE 325 MG TABLET PO SCH (08:56)
[2022-06-12] MEDS: DOPamine 800 MG/250 ML PREMIX IV PRN (13:01)
[2022-06-12] MEDS: ZINC OXIDE PASTE 113 GM TUBE TOP SCH (21:29)
[2022-06-13] MEDS: FAMOTIDINE 20 MG/2 ML VIAL IV SCH ×2 (01:57→12:27)
[2022-06-13] MEDS: PHENYLEPHRINE DRIP 40 MG/250 ML PREMIX IV PRN ×3 (03:40→16:44)
[2022-06-13 03:41] LABS: Basophils % 0.2 % (0.0-0.8); Eosinophils % 0.3 % (0.00-10.9); Hematocrit 21.8 VOL% (35.7-47.0); Hemoglobin 6.8 GM/DL (12.0-16.0); Immature Granulocytes % 1.3 %; Immature Granulocytes Absolute 0.15 #; Lymphocytes # 0.7 10*3/uL (1.4-4.0); Lymphocytes % 5.9 % (21.3-54.2); Mean Corpuscular HGB Conc 31.2 GM/DL (32-36); Mean Corpuscular Volume 98.6 FL (87-102); Monocytes # 2.2 10*3/uL (0.11-0.8); Monocytes % 19.6 % (1.7-12.7); Neutrophils % 72.7 % (38.7-73.9); Platelet Count 41 T/CUMM (130-400); Red Blood Count 2.21 MC/CUMM (3.8-5.5); Red Cell Distribution Width 18.8 % (9.3-17.3); White Blood Count 11.29 T/CUMM (4-12)
[2022-06-13 03:58] LABS: Calcium 7.5 MG/DL (8.5-10.1); Osmolality,Calculated 280.7 MOS/KG (273-304)
[2022-06-13 04:46] LABS: Hypochromia Slight; Lymphocytes 5 % (20-55); Total Cells Counted 100
[2022-06-13 04:47] LABS: Acanthocytes Few; Anisocytosis 1+; Ovalocytes Slight; Target Cells Slight
[2022-06-13 04:48] LABS: Platelet Estimate Decreased; Polychromasia Slight
[2022-06-13] MEDS: LEVOTHYROXINE 75 MCG TABLET PO SCH (06:31)
[2022-06-13] MEDS ORDERED: SODIUM CHLORIDE 0.9% 1,000 ML IV PRN (09:20)
[2022-06-13] MEDS ORDERED: PHENOL 1.4% THROAT SPRAY 177 ML BOTTLE PO PRN (09:21)
[2022-06-13] MEDS: FERROUS SULFATE 325 MG TABLET PO SCH (09:43)
[2022-06-13] MEDS: ZINC OXIDE PASTE 113 GM TUBE TOP SCH ×2 (09:44→20:59)
[2022-06-13] MEDS: MIDODRINE 5 MG TABLET PO SCH ×3 (10:41→20:26)
[2022-06-13] MEDS ORDERED: LORazepam 2 MG/1 ML VIAL IV PRN (22:53)
[2022-06-14] MEDS: FAMOTIDINE 20 MG/2 ML VIAL IV SCH ×2 (00:26→11:51)
[2022-06-14] MEDS: PHENYLEPHRINE DRIP 40 MG/250 ML PREMIX IV PRN (01:16)
[2022-06-14 03:29] LABS: Basophils % 0.2 % (0.0-0.8); Eosinophils % 0.3 % (0.00-10.9); Hematocrit 26.6 VOL% (35.7-47.0); Hemoglobin 9.2 GM/DL (12.0-16.0); Immature Granulocytes % 1.2 %; Immature Granulocytes Absolute 0.13 #; Lymphocytes # 0.8 10*3/uL (1.4-4.0); Lymphocytes % 7.8 % (21.3-54.2); Mean Corpuscular HGB Conc 34.6 GM/DL (32-36); Mean Corpuscular Volume 95.3 FL (87-102); Monocytes % 18.6 % (1.7-12.7); Neutrophils % 71.9 % (38.7-73.9); Red Blood Count 2.79 MC/CUMM (3.8-5.5); Red Cell Distribution Width 19.3 % (9.3-17.3); White Blood Count 10.51 T/CUMM (4-12)
[2022-06-14 03:34] LABS: Albumin 2.6 G/DL (3.4-5.0); Bilirubin,Total 1.7 MG/DL (0.20-1.00); Calcium 8.2 MG/DL (8.5-10.1); Osmolality,Calculated 284.4 MOS/KG (273-304); Potassium 3.9 MMOL/L (3.5-5.1); Total Protein 6.4 G/DL (6.4-8.2)
[2022-06-14 03:36] LABS: Platelet Count 36 T/CUMM (130-400)
[2022-06-14 03:54] LABS: Eosinophils 1 % (0-10); Lymphocytes 3 % (20-55); Platelet Estimate Decreased; Total Cells Counted 100
[2022-06-14 03:55] LABS: Anisocytosis 1+; Schistocytes 1+
[2022-06-14] MEDS: LEVOTHYROXINE 75 MCG TABLET PO SCH (06:13)
[2022-06-14] MEDS: FERROUS SULFATE 325 MG TABLET PO SCH (10:12)
[2022-06-14] MEDS: MIDODRINE 5 MG TABLET PO SCH ×3 (10:12→20:24)
[2022-06-14] MEDS: ZINC OXIDE PASTE 113 GM TUBE TOP SCH ×2 (10:12→20:24)
[2022-06-14] MEDS ORDERED: EPOETIN ALFA-EPBX 4,000 UNIT/ML VIAL IV PRN (10:40)
[2022-06-15] MEDS: FAMOTIDINE 20 MG/2 ML VIAL IV SCH ×2 (00:25→13:43)
[2022-06-15 03:53] LABS: Basophils % 0.1 % (0.0-0.8); Eosinophils % 0.2 % (0.00-10.9); Hematocrit 27.8 VOL% (35.7-47.0); Hemoglobin 9.3 GM/DL (12.0-16.0); Immature Granulocytes % 1.7 %; Lymphocytes # 0.7 10*3/uL (1.4-4.0); Lymphocytes % 4.2 % (21.3-54.2); Mean Corpuscular HGB Conc 33.5 GM/DL (32-36); Mean Corpuscular Volume 93.9 FL (87-102); Monocytes # 2.8 10*3/uL (0.11-0.8); Monocytes % 16.5 % (1.7-12.7); Neutrophils % 77.3 % (38.7-73.9); Red Blood Count 2.96 MC/CUMM (3.8-5.5); Red Cell Distribution Width 18.9 % (9.3-17.3)
[2022-06-15 03:59] LABS: Platelet Count 36 T/CUMM (130-400)
[2022-06-15 04:07] LABS: Albumin 2.6 G/DL (3.4-5.0); Bilirubin,Direct 0.75 MG/DL (0.0-0.20); Bilirubin,Total 1.6 MG/DL (0.20-1.00); Bilirubin,Total 1.7 MG/DL (0.20-1.00); Osmolality,Calculated 287.3 MOS/KG (273-304); Potassium 3.8 MMOL/L (3.5-5.1); Total Protein 6.4 G/DL (6.4-8.2); Total Protein 6.7 G/DL (6.4-8.2)
[2022-06-15 05:38] LABS: Eosinophils 2 % (0-10); Lymphocytes 6 % (20-55); Platelet Estimate Decreased; Total Cells Counted 100
[2022-06-15 05:39] LABS: Anisocytosis 2+; Burr Cells Few; Ovalocytes Few
[2022-06-15] MEDS: LEVOTHYROXINE 75 MCG TABLET PO SCH (06:33)
[2022-06-15] MEDS: MIDODRINE 5 MG TABLET PO SCH ×3 (09:50→22:01)
[2022-06-15] MEDS: FERROUS SULFATE 325 MG TABLET PO SCH (09:50)
[2022-06-15] MEDS: cefTRIAXone 1,000 MG in SODIUM CHLORIDE 0.9% 100 ML IV SCH (09:50)
[2022-06-15] MEDS: ZINC OXIDE PASTE 113 GM TUBE TOP SCH ×2 (10:03→22:11)
[2022-06-16] MEDS: FAMOTIDINE 20 MG/2 ML VIAL IV SCH ×2 (00:57→14:30)
[2022-06-16 06:05] LABS: Calcium 8.2 MG/DL (8.5-10.1); Osmolality,Calculated 287.3 MOS/KG (273-304)
[2022-06-16 06:16] LABS: Basophils % 0.3 % (0.0-0.8); Eosinophils # 0.1 10*3/uL (0.0-0.87); Eosinophils % 0.8 % (0.00-10.9); Hematocrit 23.2 VOL% (35.7-47.0); Immature Granulocytes % 1.4 %; Immature Granulocytes Absolute 0.13 #; Lymphocytes # 0.9 10*3/uL (1.4-4.0); Lymphocytes % 8.9 % (21.3-54.2); Mean Corpuscular Volume 96.7 FL (87-102); Mean Platelet Volume 13.3 FL (9.6-12.0); Monocytes # 1.6 10*3/uL (0.11-0.8); Monocytes % 16.7 % (1.7-12.7); Neutrophils % 71.9 % (38.7-73.9); Red Cell Distribution Width 18.8 % (9.3-17.3)
[2022-06-16] MEDS: LEVOTHYROXINE 75 MCG TABLET PO SCH (06:18)
[2022-06-16 06:19] LABS: Hemoglobin 7.2 GM/DL (12.0-16.0); Platelet Count 37 T/CUMM (130-400)
[2022-06-16 06:20] LABS: White Blood Count 9.59 T/CUMM (4-12)
[2022-06-16 06:27] LABS: Eosinophils 1 % (0-10); Hypochromia Slight; Lymphocytes 3 % (20-55); Microcytosis Slight; Ovalocytes Slight; Platelet Estimate Decreased; Total Cells Counted 100
[2022-06-16] MEDS: ZINC OXIDE PASTE 113 GM TUBE TOP SCH ×2 (10:41→21:04)
[2022-06-16] MEDS: FERROUS SULFATE 325 MG TABLET PO SCH (10:42)
[2022-06-16] MEDS: MIDODRINE 5 MG TABLET PO SCH ×3 (10:42→21:04)
[2022-06-16] MEDS: cefTRIAXone 1,000 MG in SODIUM CHLORIDE 0.9% 100 ML IV SCH (14:30)
[2022-06-16] MEDS: FAMOTIDINE 20 MG TABLET PO SCH (21:04)
[2022-06-16] MEDS ORDERED: LORazepam 2 MG/1 ML VIAL IV ONE (22:45)
[2022-06-17 03:37] LABS: Basophils % 0.2 % (0.0-0.8); Eosinophils # 0.1 10*3/uL (0.0-0.87); Eosinophils % 0.6 % (0.00-10.9); Hematocrit 18.6 VOL% (35.7-47.0); Immature Granulocytes % 0.8 %; Immature Granulocytes Absolute 0.09 #; Lymphocytes # 1.2 10*3/uL (1.4-4.0); Lymphocytes % 10.6 % (21.3-54.2); Mean Corpuscular HGB Conc 32.8 GM/DL (32-36); Mean Corpuscular Volume 94.9 FL (87-102); Monocytes # 1.8 10*3/uL (0.11-0.8); Monocytes % 16.9 % (1.7-12.7); Neutrophils % 70.9 % (38.7-73.9); Red Blood Count 1.96 MC/CUMM (3.8-5.5); Red Cell Distribution Width 19.6 % (9.3-17.3)
[2022-06-17 03:42] LABS: Hemoglobin 6.1 GM/DL (12.0-16.0); Platelet Count 35 T/CUMM (130-400)
[2022-06-17 03:49] LABS: Calcium 7.8 MG/DL (8.5-10.1); Osmolality,Calculated 284.3 MOS/KG (273-304); Potassium 3.8 MMOL/L (3.5-5.1)
[2022-06-17] MEDS ORDERED: SODIUM CHLORIDE 0.9% 1,000 ML IV PRN (03:49)
[2022-06-17 05:07] LABS: Lymphocytes 12 % (20-55); Nucleated Red Blood Cells 1 /100 WBC (0-5); Platelet Estimate Decreased; Total Cells Counted 100
[2022-06-17 05:08] LABS: Hypochromia 1+; Microcytosis Slight
[2022-06-17] MEDS: LEVOTHYROXINE 75 MCG TABLET PO SCH (05:45)
[2022-06-17] MEDS: cefTRIAXone 1,000 MG in SODIUM CHLORIDE 0.9% 100 ML IV SCH (09:40)
[2022-06-17] MEDS: ZINC OXIDE PASTE 113 GM TUBE TOP SCH ×2 (09:40→20:52)
[2022-06-17] MEDS: MIDODRINE 5 MG TABLET PO SCH ×3 (12:16→20:52)
[2022-06-17] MEDS: FAMOTIDINE 20 MG TABLET PO SCH ×2 (12:16→20:52)
[2022-06-17] MEDS: FERROUS SULFATE 325 MG TABLET PO SCH (12:16)
[2022-06-18 00:36] LABS: HIT Interpretation Negative (Negative)
[2022-06-18 05:57] LABS: Basophils % 0.5 % (0.0-0.8); Eosinophils # 0.1 10*3/uL (0.0-0.87); Eosinophils % 0.9 % (0.00-10.9); Hematocrit 26.3 VOL% (35.7-47.0); Hemoglobin 8.3 GM/DL (12.0-16.0); Immature Granulocytes Absolute 0.08 #; Lymphocytes # 0.9 10*3/uL (1.4-4.0); Lymphocytes % 12.3 % (21.3-54.2); Mean Corpuscular HGB Conc 31.6 GM/DL (32-36); Mean Corpuscular Volume 92.3 FL (87-102); Mean Platelet Volume 13.5 FL (9.6-12.0); Monocytes # 1.7 10*3/uL (0.11-0.8); Monocytes % 22.1 % (1.7-12.7); Neutrophils % 63.2 % (38.7-73.9); Platelet Count 46 T/CUMM (130-400); Red Blood Count 2.85 MC/CUMM (3.8-5.5); Red Cell Distribution Width 20.1 % (9.3-17.3); White Blood Count 7.66 T/CUMM (4-12)
[2022-06-18] MEDS: LEVOTHYROXINE 75 MCG TABLET PO SCH (05:57)
[2022-06-18 06:19] LABS: Osmolality,Calculated 282.4 MOS/KG (273-304); Potassium 3.9 MMOL/L (3.5-5.1)
[2022-06-18 06:22] LABS: Lymphocytes 10 % (20-55); Platelet Estimate Decreased; Total Cells Counted 100
[2022-06-18 06:23] LABS: Hypochromia Slight
[2022-06-18] MEDS: MIDODRINE 5 MG TABLET PO SCH ×3 (08:59→20:46)
[2022-06-18] MEDS: FERROUS SULFATE 325 MG TABLET PO SCH (08:59)
[2022-06-18] MEDS: FAMOTIDINE 20 MG TABLET PO SCH ×2 (08:59→20:46)
[2022-06-18] MEDS: cefTRIAXone 1,000 MG in SODIUM CHLORIDE 0.9% 100 ML IV SCH (09:00)
[2022-06-18] MEDS: ZINC OXIDE PASTE 113 GM TUBE TOP SCH ×2 (09:10→20:46)
[2022-06-18] MEDS ORDERED: LORazepam 2 MG/1 ML VIAL IV ONE (22:10)
[2022-06-19] MEDS: LEVOTHYROXINE 75 MCG TABLET PO SCH (06:16)
[2022-06-19 07:52] LABS: Basophils % 0.3 % (0.0-0.8); Eosinophils # 0.1 10*3/uL (0.0-0.87); Eosinophils % 0.5 % (0.00-10.9); Hematocrit 23.1 VOL% (35.7-47.0); Hemoglobin 7.4 GM/DL (12.0-16.0); Immature Granulocytes % 1.3 %; Immature Granulocytes Absolute 0.14 #; Lymphocytes # 1.1 10*3/uL (1.4-4.0); Lymphocytes % 10.1 % (21.3-54.2); Mean Corpuscular Volume 91.7 FL (87-102); Monocytes # 2.5 10*3/uL (0.11-0.8); Monocytes % 22.8 % (1.7-12.7); Red Blood Count 2.52 MC/CUMM (3.8-5.5); Red Cell Distribution Width 19.9 % (9.3-17.3); White Blood Count 11.12 T/CUMM (4-12)
[2022-06-19 08:03] LABS: Platelet Count 31 T/CUMM (130-400)
[2022-06-19 08:09] LABS: Calcium 8.1 MG/DL (8.5-10.1); Osmolality,Calculated 281.4 MOS/KG (273-304); Potassium 3.7 MMOL/L (3.5-5.1)
[2022-06-19 08:11] LABS: Eosinophils 2 % (0-10); Lymphocytes 10 % (20-55); Nucleated Red Blood Cells 1 /100 WBC (0-5); Total Cells Counted 100
[2022-06-19 08:12] LABS: Hypochromia Slight; Platelet Estimate Decreased
[2022-06-19] MEDS: ZINC OXIDE PASTE 113 GM TUBE TOP SCH ×2 (09:00→20:23)
[2022-06-19] MEDS: cefTRIAXone 1,000 MG in SODIUM CHLORIDE 0.9% 100 ML IV SCH (09:28)
[2022-06-19] MEDS: MIDODRINE 5 MG TABLET PO SCH ×3 (09:28→20:22)
[2022-06-19] MEDS: FAMOTIDINE 20 MG TABLET PO SCH ×2 (09:28→20:22)
[2022-06-19] MEDS: FERROUS SULFATE 325 MG TABLET PO SCH (09:28)
[2022-06-19 17:03] LABS: Basophils % 0.3 % (0.0-0.8); Eosinophils # 0.1 10*3/uL (0.0-0.87); Eosinophils % 0.7 % (0.00-10.9); Hematocrit 23.8 VOL% (35.7-47.0); Hemoglobin 7.7 GM/DL (12.0-16.0); Immature Granulocytes % 1.6 %; Immature Granulocytes Absolute 0.16 #; Lymphocytes # 1.3 10*3/uL (1.4-4.0); Lymphocytes % 12.6 % (21.3-54.2); Mean Corpuscular HGB Conc 32.4 GM/DL (32-36); Mean Corpuscular Volume 91.2 FL (87-102); Monocytes # 2.8 10*3/uL (0.11-0.8); Monocytes % 27.4 % (1.7-12.7); Neutrophils % 57.4 % (38.7-73.9); Red Blood Count 2.61 MC/CUMM (3.8-5.5); Red Cell Distribution Width 20.3 % (9.3-17.3); White Blood Count 10.17 T/CUMM (4-12)
[2022-06-19 17:09] LABS: Platelet Count 31 T/CUMM (130-400)
[2022-06-19 17:24] LABS: Hypochromia 1+; Lymphocytes 11 % (20-55); Total Cells Counted 100
[2022-06-19 17:25] LABS: Anisocytosis 1+; Elliptocytes Few; Platelet Estimate Decreased; Polychromasia Few; Schistocytes Few; Target Cells Few
[2022-06-20] MEDS: LEVOTHYROXINE 75 MCG TABLET PO SCH (06:22)
[2022-06-20 06:31] LABS: Basophils # 0.1 10*3/uL (0.0-0.2); Basophils % 0.5 % (0.0-0.8); Eosinophils % 0.4 % (0.00-10.9); Hemoglobin 8.3 GM/DL (12.0-16.0); Immature Granulocytes % 1.1 %; Immature Granulocytes Absolute 0.11 #; Mean Corpuscular HGB Conc 30.7 GM/DL (32-36); Mean Corpuscular Volume 94.4 FL (87-102); Monocytes # 2.9 10*3/uL (0.11-0.8); Monocytes % 28.3 % (1.7-12.7); Neutrophils % 59.7 % (38.7-73.9); Platelet Count 44 T/CUMM (130-400); Red Blood Count 2.86 MC/CUMM (3.8-5.5); Red Cell Distribution Width 20.3 % (9.3-17.3)
[2022-06-20 06:47] LABS: Calcium 8.3 MG/DL (8.5-10.1); Osmolality,Calculated 282.4 MOS/KG (273-304); Potassium 3.9 MMOL/L (3.5-5.1)
[2022-06-20 07:12] LABS: Lymphocytes 12 % (20-55); Total Cells Counted 100
[2022-06-20 07:13] LABS: Hypochromia Slight; Microcytosis Slight; Platelet Estimate Decreased
[2022-06-20] MEDS: MIDODRINE 5 MG TABLET PO SCH ×3 (09:00→20:29)
[2022-06-20] MEDS: FAMOTIDINE 20 MG TABLET PO SCH ×2 (14:40→20:30)
[2022-06-20] MEDS: cefTRIAXone 1,000 MG in SODIUM CHLORIDE 0.9% 100 ML IV SCH (14:40)
[2022-06-20] MEDS: FERROUS SULFATE 325 MG TABLET PO SCH (14:40)
[2022-06-20] MEDS: ZINC OXIDE PASTE 113 GM TUBE TOP SCH ×2 (14:41→20:29)
[2022-06-21] MEDS: LEVOTHYROXINE 75 MCG TABLET PO SCH (05:37)
[2022-06-21] MEDS: MIDODRINE 5 MG TABLET PO SCH ×3 (10:06→21:14)
[2022-06-21] MEDS: FERROUS SULFATE 325 MG TABLET PO SCH (10:07)
[2022-06-21] MEDS: cefTRIAXone 1,000 MG in SODIUM CHLORIDE 0.9% 100 ML IV SCH (10:07)
[2022-06-21] MEDS: FAMOTIDINE 20 MG TABLET PO SCH ×2 (10:07→21:14)
[2022-06-21] MEDS: ZINC OXIDE PASTE 113 GM TUBE TOP SCH ×2 (10:19→21:15)
[2022-06-21 10:32] LABS: Basophils # 0.1 10*3/uL (0.0-0.2); Basophils % 0.6 % (0.0-0.8); Eosinophils # 0.1 10*3/uL (0.0-0.87); Eosinophils % 0.7 % (0.00-10.9); Hematocrit 24.1 VOL% (35.7-47.0); Hemoglobin 7.6 GM/DL (12.0-16.0); Immature Granulocytes Absolute 0.08 #; Lymphocytes # 1.2 10*3/uL (1.4-4.0); Lymphocytes % 13.9 % (21.3-54.2); Mean Corpuscular HGB Conc 31.5 GM/DL (32-36); Mean Corpuscular Volume 93.4 FL (87-102); Monocytes # 2.5 10*3/uL (0.11-0.8); Monocytes % 29.7 % (1.7-12.7); Neutrophils % 54.1 % (38.7-73.9); Platelet Count 51 T/CUMM (130-400); Red Blood Count 2.58 MC/CUMM (3.8-5.5); Red Cell Distribution Width 20.5 % (9.3-17.3); White Blood Count 8.33 T/CUMM (4-12)
[2022-06-21 10:47] LABS: Calcium 7.9 MG/DL (8.5-10.1); Osmolality,Calculated 285.3 MOS/KG (273-304); Potassium 3.8 MMOL/L (3.5-5.1)
[2022-06-21 10:50] LABS: Band Neutrophils 1 % (0-10); Eosinophils 1 % (0-10); Lymphocytes 11 % (20-55); Myelocytes 1 %; Total Cells Counted 100
[2022-06-21 10:51] LABS: Hypochromia Slight
[2022-06-21 10:52] LABS: Anisocytosis 1+; Platelet Estimate Decreased; Polychromasia Slight
[2022-06-22] MEDS: traMADol 50 MG TABLET PO PRN ×2 (05:09→13:14)
[2022-06-22 05:22] LABS: Basophils % 0.5 % (0.0-0.8); Eosinophils % 0.5 % (0.00-10.9); Hematocrit 25.1 VOL% (35.7-47.0); Immature Granulocytes % 0.9 %; Immature Granulocytes Absolute 0.07 #; Mean Corpuscular HGB Conc 31.9 GM/DL (32-36); Mean Corpuscular Volume 93.3 FL (87-102); Monocytes # 2.7 10*3/uL (0.11-0.8); Monocytes % 33.7 % (1.7-12.7); Neutrophils % 52.4 % (38.7-73.9); Platelet Count 43 T/CUMM (130-400); Red Blood Count 2.69 MC/CUMM (3.8-5.5); White Blood Count 8.01 T/CUMM (4-12)
[2022-06-22 05:49] LABS: Anisocytosis 1+; Platelet Estimate Decreased
[2022-06-22 05:52] LABS: Calcium 8.1 MG/DL (8.5-10.1); Osmolality,Calculated 281.4 MOS/KG (273-304)
[2022-06-22 05:57] LABS: Lymphocytes 17 % (20-55); Total Cells Counted 100
[2022-06-22] MEDS: LEVOTHYROXINE 75 MCG TABLET PO SCH (06:15)
[2022-06-22] MEDS: ZINC OXIDE PASTE 113 GM TUBE TOP SCH ×2 (09:42→20:38)
[2022-06-22] MEDS: FAMOTIDINE 20 MG TABLET PO SCH ×2 (09:43→20:37)
[2022-06-22] MEDS: MIDODRINE 5 MG TABLET PO SCH ×3 (09:43→20:37)
[2022-06-22] MEDS: FERROUS SULFATE 325 MG TABLET PO SCH (09:44)
[2022-06-23 06:02] LABS: Basophils # 0.1 10*3/uL (0.0-0.2); Basophils % 0.6 % (0.0-0.8); Eosinophils # 0.1 10*3/uL (0.0-0.87); Eosinophils % 1.2 % (0.00-10.9); Hematocrit 22.9 VOL% (35.7-47.0); Hemoglobin 7.3 GM/DL (12.0-16.0); Immature Granulocytes % 0.5 %; Immature Granulocytes Absolute 0.04 #; Lymphocytes # 1.3 10*3/uL (1.4-4.0); Lymphocytes % 15.5 % (21.3-54.2); Mean Corpuscular HGB Conc 31.9 GM/DL (32-36); Mean Corpuscular Volume 94.2 FL (87-102); Mean Platelet Volume 12.5 FL (9.6-12.0); Monocytes # 2.6 10*3/uL (0.11-0.8); Monocytes % 32.1 % (1.7-12.7); Neutrophils % 50.1 % (38.7-73.9); Platelet Count 62 T/CUMM (130-400); Red Blood Count 2.43 MC/CUMM (3.8-5.5); Red Cell Distribution Width 19.9 % (9.3-17.3); White Blood Count 8.04 T/CUMM (4-12)
[2022-06-23 06:19] LABS: Calcium 8.4 MG/DL (8.5-10.1); Osmolality,Calculated 278.7 MOS/KG (273-304)
[2022-06-23 06:31] LABS: Eosinophils 1 % (0-10); Hypochromia Slight; Lymphocytes 10 % (20-55); Total Cells Counted 100
[2022-06-23 06:32] LABS: Anisocytosis 1+; Polychromasia Slight
[2022-06-23 06:33] LABS: Ovalocytes Slight; Platelet Estimate Decreased
[2022-06-23] MEDS: LEVOTHYROXINE 75 MCG TABLET PO SCH (06:33)
[2022-06-23] MEDS: traMADol 50 MG TABLET PO PRN (06:34)
[2022-06-23] MEDS: FAMOTIDINE 20 MG TABLET PO SCH (08:01)
[2022-06-23] MEDS: ZINC OXIDE PASTE 113 GM TUBE TOP SCH (08:02)
[2022-06-23] MEDS: MIDODRINE 5 MG TABLET PO SCH ×2 (08:02→14:36)
[2022-06-23] MEDS: FERROUS SULFATE 325 MG TABLET PO SCH (08:02)
[2022-06-23 08:18] VITALS: BP 91/66
== END 2022-06-23 16:09 | disposition home health service (06) | DRG 673 ==
LOC: N.ED 08:49 → N.ICU 11:21 → SUATTDRO 11:21 → N.ICU 12:38 → N.2E 06-17 16:38 → N.ICU 06-17 16:44 → N.2E 06-17 17:04 → N.ICU 06-17 17:08 → N.2E 06-17 19:23
PROVIDERS: ADMIT Family Medicine; ATTEND Internal Medicine